=== PATIENT | female | born 1935 | race Caucasian/White ===

== ENCOUNTER 2017-03-24 18:17 | Emergency (ER) | payer MEDICARE, MEDICAID ==
--- NOTE | 2017-03-24 19:04 | ED Physician Chart ---
ED Chief Complaint/HPI - Patient Information Date Seen:: 03/24/17 Time Seen:: 18:22 Chief Complaint:: Transient confusion. History of Present Illness:: Brought in by ambulance from assisted living facility for the above reason. Pt states that she now feels better. Pt currently denies any lightheadedness, chest pain, palpitation or dyspnea. Pt feels well now without subjective complaint. Allergies:: Allergies Allergy/AdvReac Type Severity Reaction Status Date / Time MDX No Known Allergies - Nka Allergy Verified 05/07/14 13:03 [No Known Allergies - Nka] Vitals:: see Nurse Note. Historian:: Patient, Medical Records (from assisted living facility, very limited.) Family MD/PCP:: Dr. Rojas Sharma. LMP:: Postmenopausal Review:: Nurse's Note Reviewed, Transfer documents Reviewed ED Review of Systems - Review of Systems General/Constitutional: No fever, No chills, No weight loss, No weakness, No diaphoresis, No edema, No loss of appetite Skin: No rash, No bruising Head: No headache, Light headed (?transient) Eyes: No loss of vision, No pain, No diplopia ENT: No earache, No nasal drainage, No sore throat, No tinnitus Neck: No neck pain, No swelling, No thyromegaly, No stiffness, No mass noted Cardio Vascular: No chest pain, No palpitations, No PND, No orthopnea, No edema Pulmonary: No SOB, No cough, No wheezing GI: No nausea, No vomiting, No diarrhea, No pain G/U: No dysuria, No frequency, No hematuria [employer] Administrator: No vaginal discharge, No abnormal vaginal bleed Musculoskeletal: No bone or joint pain Endocrine: No polyuria, No polydipsia Psychiatric: Prior psych history, No depression Hematopoietic: No bruising, No lymphadenopathy Allergic/Immuno: No urticaria, No angioedema Neurological: No syncope, No focal symptoms, No weakness, No paresthesia, No headache, Confusion (transient), No vertigo ED Past Medical History - Past Medical History Past Medical History: CAD, Dementia, Other (Parkinson's disease. Osteoporosis.) Family History: Cancer (an uncle) Social History: Non Smoker, No Alcohol, No Drug Use, Single, Care Facility Employment:: retired. Surgical History: None Psychiatricy History: Depression, Dementia Medication: Reviewed Family Medical History - Family Member Mother History Unknown: Yes Ethnicity: Non- Living Status: Unknown Hx Family Cancer: (unknown) Hx Family Coronary Artery Disease: (unknown) Hx Family Congestive Heart Failure: (unknown) Hx Family Hypertension: (unknown) Hx Family Stroke: (unknown) Hx Family Diabetes: (unknown) Hx Family Seizures: (unknown) Hx Family Dementia: (unknown) Hx Family AIDS: (unknown) Hx Family COPD: (unknown) Hx Family Hepatitis: (unknown) Hx Family Psychiatric Problems: (unknown) Hx Family Tuberculosis: (unknown) ED Physical Exam - Physical Examination General/Constitutional: Awake, Well-developed, well-nourished, Alert, No distress, Non-toxic appearing Other Gen/Cons comments:: Breathes comfortably, speaks clearly, interacts normally except pt appears to be forgetful from time to time. Head: Atraumatic Eyes: Lids, conjuctiva normal, PERRL, EOMI Skin: Nl inspection, No rash, No ecchymosis, Well hydrated, No lymphadenopathy ENMT: External ears, nose nl, TM canals nl, Nasal exam nl, Oropharynx nl Neck: Nontender, Full ROM w/o pain, No JVD, No nuchal rigidity, No mass, No stridor Respiratory: Nl effort/Exclusion, Clear to Auscultation, No Wheeze/Rhonchi/Rales Cardio Vascular: RRR, No murmur, gallop, rubs GI: No tenderness/rebounding/guarding, No organomegaly, No mass/bruits Other GI comments:: Obese but soft. : No CVA tenderness Extremities: No tenderness or effusion, No edema Neuro/Psych: Alert/oriented (knows her name, that she is in ER in the evening.) , Mood normal, No focal deficits ED Labs/Radiology/EKG Results - Lab Results Results: Laboratory Tests 03/24/17 03/24/17 03/24/17 19:00 19:15 19:15 WBC 7.0 RBC 3.89 Hgb 12.2 Hct 35.7 L D MCV 91.8 MCH 31.4 H MCHC Differential 34.2 RDW 14.7 Plt Count 353 D MPV 7.7 Neutrophils % 60.0 Lymphocytes % 30.0 Monocytes % 7.8 Eosinophils % 1.9 Basophils % 0.3 PT 10.3 INR 0.99 PTT (Actin FS) 23.4 L Creatine Kinase Troponin I Urine Source CATH Urine Color PALE YELLOW Urine Clarity CLEAR Urine pH 7.0 Ur Specific Denbo <= 1.005 Urine Protein NEGATIVE Urine Glucose (UA) NEGATIVE Urine Ketones NEGATIVE Urine Blood NEGATIVE Urine Nitrate NEGATIVE Urine Bilirubin NEGATIVE Urine Urobilinogen 0.2 Ur Leukocyte Esterase NEGATIVE Urine RBC NONE SEEN Urine WBC NONE SEEN Ur Epithelial Cells NONE SEEN Urine Bacteria NONE SEEN Valproic Acid 03/24/17 03/24/17 03/24/17 19:15 19:15 19:15 WBC RBC Hgb Hct MCV MCH MCHC Differential RDW Plt Count MPV Neutrophils % Lymphocytes % Monocytes % Eosinophils % Basophils % PT INR PTT (Actin FS) Creatine Kinase 72 Troponin I 0.01 Urine Source Urine Color Urine Clarity Urine pH Ur Specific Denbo Urine Protein Urine Glucose (UA) Urine Ketones Urine Blood Urine Nitrate Urine Bilirubin Urine Urobilinogen Ur Leukocyte Esterase Urine RBC Urine WBC Ur Epithelial Cells Urine Bacteria Valproic Acid 33.7 L Laboratory Last Values WBC 7.0 Th/cmm (4.8-10.8) 03/24/17 19:15 RBC 3.89 Mil/cmm (3.80-5.20) 03/24/17 19:15 Hgb 12.2 gm/dL (12-16) 03/24/17 19:15 Hct 35.7 % (41.0-60) L D 03/24/17 19:15 MCV 91.8 fl (81-100) 03/24/17 19:15 MCH 31.4 pg (27.0-31.0) H 03/24/17 19:15 MCHC Differential 34.2 pg (28.0-36.0) 03/24/17 19:15 RDW 14.7 % (11.5-20.0) 03/24/17 19:15 Plt Count 353 Th/cmm (150-400) D 03/24/17 19:15 MPV 7.7 fl 03/24/17 19:15 Neutrophils % 60.0 % (40.0-80.0) 03/24/17 19:15 Lymphocytes % 30.0 % (20.0-50.0) 03/24/17 19:15 Monocytes % 7.8 % (2.0-10.0) 03/24/17 19:15 Eosinophils % 1.9 % (0.0-5.0) 03/24/17 19:15 Basophils % 0.3 % (0.0-2.0) 03/24/17 19:15 PT 10.3 SECONDS (9.5-11.5) 03/24/17 19:15 INR 0.99 (0.5-1.4) 03/24/17 19:15 PTT (Actin FS) 23.4 SECONDS (26.0-38.0) L 03/24/17 19:15 Sodium 131 mEq/L (136-145) L 03/24/17 19:15 Potassium 3.8 mEq/L (3.5-5.1) 03/24/17 19:15 Chloride 96 mEq/L (98-107) L 03/24/17 19:15 Carbon Dioxide 26.1 mEq/L (21.0-31.0) 03/24/17 19:15 Anion Gap 12.7 (7.0-16.0) 03/24/17 19:15 BUN 22 mg/dL (7-25) 03/24/17 19:15 Creatinine 0.6 mg/dL (0.6-1.2) 03/24/17 19:15 Est GFR ( Amer) TNP 03/24/17 19:15 Est GFR (Non-Af Amer) TNP 03/24/17 19:15 BUN/Creatinine Ratio 36.7 03/24/17 19:15 Glucose 104 mg/dL (70-105) 03/24/17 19:15 Calcium 9.0 mg/dL (8.6-10.3) 03/24/17 19:15 Total Bilirubin 0.4 mg/dL (0.3-1.0) 03/24/17 19:15 AST 17 U/L (13-39) 03/24/17 19:15 ALT 3 U/L (7-52) L 03/24/17 19:15 Alkaline Phosphatase 51 U/L (34-104) 03/24/17 19:15 Creatine Kinase 72 U/L (30-223) 03/24/17 19:15 Troponin I 0.01 ng/mL (0.01-0.05) 03/24/17 19:15 Total Protein 6.6 gm/dL (6.0-8.3) 03/24/17 19:15 Albumin 3.7 gm/dL (3.7-5.3) 03/24/17 19:15 Globulin 2.9 gm/dL 03/24/17 19:15 Albumin/Globulin Ratio 1.3 (1.0-1.8) 03/24/17 19:15 Urine Source CATH 03/24/17 19:00 Urine Color PALE YELLOW 03/24/17 19:00 Urine Clarity CLEAR (CLEAR) 03/24/17 19:00 Urine pH 7.0 (4.6 - 8.0) 03/24/17 19:00 Ur Specific Denbo <= 1.005 (1.005-1.030) 03/24/17 19:00 Urine Protein NEGATIVE mg/dL (NEGATIVE) 03/24/17 19:00 Urine Glucose (UA) NEGATIVE mg/dL (NEGATIVE) 03/24/17 19:00 Urine Ketones NEGATIVE mg/dL (NEGATIVE) 03/24/17 19:00 Urine Blood NEGATIVE (NEGATIVE) 03/24/17 19:00 Urine Nitrate NEGATIVE (NEGATIVE) 03/24/17 19:00 Urine Bilirubin NEGATIVE (NEGATIVE) 03/24/17 19:00 Urine Urobilinogen 0.2 E.U./dL (0.2 - 1.0) 03/24/17 19:00 Ur Leukocyte Esterase NEGATIVE (NEGATIVE) 03/24/17 19:00 Urine RBC NONE SEEN /hpf (0-5) 03/24/17 19:00 Urine WBC NONE SEEN /hpf (0-5) 03/24/17 19:00 Ur Epithelial Cells NONE SEEN /lpf (FEW) 03/24/17 19:00 Urine Bacteria NONE SEEN /hpf (NONE SEEN) 03/24/17 19:00 Valproic Acid 33.7 ug/mL (50.0-100.0) L 03/24/17 19:15 - Radiology Results Results: Head CT without contrast: No ICH, mass effect, or edema. Involutional and chronic small vessl ischemic changes. No skull fracture. sphenoid sinusitis. Clear mastoid air cells. Official report per Dr. Eddi Dennison, radiologist. - EKG Interpretations EKG Time:: 19:47 Rate & Rhythm: NSR with VR 68 Comments:: LAE. LBBB NSSTT changes. ED Septic Shock - . Is Septic Shock (SBP<90, OR Lactate>4 mmol\L) present?: No ED Reassessment (Disposition) - Reassessment Reassessment:: 2224 Pt has been repeatedly evaluated. Pt remains stable and appears to be comfortable. No new complaint or findings. Remaining lab results just became available. Lab, EKG, and head CT findings have been reviewed with pt. Pt's attending physician Dr. Sharma is to be contacted. [id number] Case was discussed with Dr. Sharma with pertinent H & P, EKG, lab, and CT findings reviewed. Dr. Sharma requested that pt is to be sent back to [facility]. He will adjust pt's medications. He will see pt tomorrow for follow up. Pt remains comfortable and stable. She is A and O x 3. Pt breathes comfortably and speaks clearly. Pt states that she is back to her baseline functional status. Pt agrees with Dr. Sharma's decision and requests to return to assisted living facility now. Aftercare instructions have been given. Reassessment Condition:: Improved - Diagnosis Diagnosis:: Transient confusion by hx. Consider medication effect. Resolved and currently asymptomatic. Acute sinusitis by head CT. Stable. - Aftercare/Follow up Instructions Aftercare/Follow-Up Instructions:: Refer to Discharge Instructions Notes:: Bedrest for now. May take Tylenol 500 mg tab one tab po q6h prn pain. F/U with PCP Dr. Rojas Sharma as planned for 03/25/17. Return to ER immediately if condition worsens or if any further questions/problems. Medication Prescribed:: Bactrim DS one tab po q12h D-28 R-0 - Patient Disposition Discharge/Transfer:: Residential/Boarding Care Transport Method:: BLS Time:: 23:20 Condition at Disposition:: Stable, Improved ED Discharge Plan - Patient Disposition Admit/Discharge/Transfer: Discharge/Transfered to SNF Condition at Disposition: Stable Prescriptions: Sulfamethoxazole/TMP [Bactrim Ds] 1 tab PO Q12HR #12 tab Instructions: Sinusitis, [id number]
[2017-03-24 19:22] LABS: % BASOPHILS 0.3 % (0.0-2.0); % EOSINOPHILS 1.9 % (0.0-5.0); % MONOCYTES 7.8 % (2.0-10.0); HEMOGLOBIN 12.2 gm/dL (12-16); MEAN CELL VOLUME 91.8 fl (81-100); MEAN CORPUSCULAR HEMOGLOBIN 31.4 pg (27.0-31.0); MEAN CORPUSCULAR HGB CONC 34.2 pg (28.0-36.0); MEAN PLATELET VOLUME 7.7 fl; NEUTROPHILE ABSOLUTE 4.3 Th/cmm (1.8-8.0); RED BLOOD COUNT 3.89 Mil/cmm (3.80-5.20); RED CELL DISTRIBUTION WIDTH 14.7 % (11.5-20.0)
[2017-03-24 19:23] LABS: HEMATOCRIT 35.7 % (41.0-60); PLATELET COUNT 353 Th/cmm (150-400)
[2017-03-24 19:36] LABS: INR 0.99 (0.5-1.4); PROTHROMBIN TIME (TEST) 10.3 SECONDS (9.5-11.5)
[2017-03-24 19:48] LABS: URINE BILIRUBIN NEGATIVE (NEGATIVE); URINE BLOOD NEGATIVE (NEGATIVE); URINE GLUCOSE (UA) NEGATIVE (NEGATIVE); URINE KETONE NEGATIVE (NEGATIVE); URINE PROTEIN NEGATIVE (NEGATIVE); URINE UROBILINOGEN 0.2 E.U./dL (0.2 - 1.0)
[2017-03-24 19:50] LABS: URINE COLOR PALE YELLOW
[2017-03-24 19:51] LABS: URINE BACTERIA NONE SEEN /hpf (NONE SEEN); URINE EPITHELIAL CELLS NONE SEEN /lpf (FEW); URINE RBC NONE SEEN /hpf (0-5); URINE WBC NONE SEEN /hpf (0-5)
[2017-03-24 21:51] LABS: ALB/GLOB RATIO 1.3 (1.0-1.8); ALKALINE PHOSPHATASE 51 U/L (34-104); ANION GAP 12.7 (7.0-16.0); BILIRUBIN,TOTAL 0.4 mg/dL (0.3-1.0); BUN - UREA NITROGEN 22 mg/dL (7-25); BUN/CREATININE RATIO 36.7; CARBON DIOXIDE 26.1 mEq/L (21.0-31.0); CHLORIDE 96 mEq/L (98-107); CREATININE - SERUM 0.6 mg/dL (0.6-1.2); GLUCOSE 104 mg/dL (70-105); POTASSIUM SERUM 3.8 mEq/L (3.5-5.1); SGOT 17 U/L (13-39); SGPT/ALT 3 U/L (7-52); SODIUM SERUM 131 mEq/L (136-145)
[2017-03-24] MEDS ORDERED: Sulfamethoxazole/TMP 800/160mg Tab ONE (22:49)
[2017-03-24] MEDS: Sulfamethoxazole/TMP 800/160mg Tab PO ONE (22:52)
--- NOTE | 2017-03-25 07:34 | Diagnostic Imaging Report ---
CT scan of the brain without intravenous contrast HISTORY: Confusion Total DLP equals 620 CTDI equals 32.2 Axial sections were obtained from the base of the skull to the vertex. There is prominence/enlargement of the ventricular system size. Associated enlargement of cerebral sulci and subarachnoid cisterns. Findings are consistent with changes of generalized cerebral atrophy. No acute parenchymal abnormalities. No acute cerebral hemorrhage. Hypodensity is seen within the supratentorial white matter regions without mass effect. The findings may be associated with chronic small vessel ischemic disease. No extra-axial masses or abnormal fluid collections. The vertebral arteries are calcified. IMPRESSION: 1. No acute abnormalities 2. Cerebral atrophy 3. Supratentorial white matter changes that may reflect chronic small vessel ischemic disease
== END 2017-03-24 23:23 ==
LOC: ER 18:17
DX: R41.0 Disorientation, unspecified (principal); J01.90 Acute sinusitis, unspecified; I25.10 Atherosclerotic heart disease of native coronary artery without angina pectoris; F03.90 Unspecified dementia, unspecified severity, without behavioral disturbance, psychotic disturbance, mood disturbance, and anxiety; Z86.69 Personal history of other diseases of the nervous system and sense organs
CPT/HCPCS: 36415-UA; 70450-TC; 80053-TC; 80164-TC; 81001-TC; 82550-TC; 84484-TC; 85025-TC; 85610-TC; 93005

== ENCOUNTER 2017-11-13 13:09 | Inpatient (IN) | payer MEDICARE, MEDICAID ==
[2017-11-13 13:48] LABS: % BASOPHILS 0.1 % (0.0-2.0); % EOSINOPHILS 0.8 % (0.0-5.0); % LYMPHOCYTES 18.9 % (20.0-50.0); % MONOCYTES 9.1 % (2.0-10.0); % NEUTROPHILS 71.1 % (40.0-80.0); EOSINOPHILE ABSOLUTE 0.1 Th/cmm (0.1-0.4); HEMATOCRIT 40.7 % (41.0-60); HEMOGLOBIN 13.7 gm/dL (12-16); LYMPHOCYTE ABSOLUTE 2.1 Th/cmm (1.5-3.0); MEAN CORPUSCULAR HGB CONC 33.8 pg (28.0-36.0); MEAN PLATELET VOLUME 8.1 fl; NEUTROPHILE ABSOLUTE 7.7 Th/cmm (1.8-8.0); PLATELET COUNT 413 Th/cmm (150-400); RED BLOOD COUNT 4.43 Mil/cmm (3.80-5.20); RED CELL DISTRIBUTION WIDTH 13.6 % (11.5-20.0); WHITE BLOOD COUNT 10.9 Th/cmm (4.8-10.8)
[2017-11-13 14:05] LABS: INR 1.14 (0.5-1.4)
[2017-11-13 14:10] LABS: ALB/GLOB RATIO 1.2 (1.0-1.8); ALBUMIN 3.5 gm/dL (3.7-5.3); ALKALINE PHOSPHATASE 59 U/L (34-104); ANION GAP 14.3 (7.0-16.0); BILIRUBIN,TOTAL 0.5 mg/dL (0.3-1.0); BUN - UREA NITROGEN 24 mg/dL (7-25); CALCIUM SERUM 9.3 mg/dL (8.6-10.3); CHLORIDE 99 mEq/L (98-107); CREATININE - SERUM 0.6 mg/dL (0.6-1.2); CREATININE KINASE 900 U/L (30-223); GLUCOSE 110 mg/dL (70-105); POTASSIUM SERUM 3.3 mEq/L (3.5-5.1); SGOT 44 U/L (13-39); SGPT/ALT 25 U/L (7-52); SODIUM SERUM 136 mEq/L (136-145); TOTAL PROTEIN,SERUM 6.4 gm/dL (6.0-8.3)
[2017-11-13 14:12] LABS: TROP I 0.02 ng/mL (0.01-0.05)
--- NOTE | 2017-11-13 14:51 | Diagnostic Imaging Report ---
CHEST X-RAY: AP view INDICATION: pain COMPARISON: None FINDINGS: The patient is mildly rotated. There is soft tissue prominence of right paratracheal region. Chronic lung changes are seen with elevation of the right hemidiaphragm and right basal increased lung markings. No focal consolidation or effusions. Heart size is normal. Degenerative changes of the spine are noted. Postsurgical changes of the right upper quadrant are noted. IMPRESSION: Prominence of the right paratracheal soft tissues probably due to patient rotation and vasculature in this region. Lymphadenopathy is less likely. Consider follow-up assessment, if indicated. Increased right basal lung markings which may be due to atelectasis or scarring. No focal consolidation identified Chronic lung changes.
--- NOTE | 2017-11-13 14:53 | Diagnostic Imaging Report ---
Pelvis and hips 2 views Indication: Fall Comparison: none Findings: Mild degenerative changes of the bilateral hip joints are noted. Calcific density seen along the medial aspect of the right femoral neck. No dislocation. Degenerative changes of pubic symphysis joint is noted. Calcifications are seen within the pelvis possibly due to fibroids. The SI joints demonstrate degenerative changes. Degenerative changes of the lower lumbar spine is also noted. Atherosclerosis is noted. Impression: Calcific density adjacent to the right medial femoral neck. This may be due to degenerative etiology or may be due to projection. A nondisplaced fracture is considered less likely. CT pelvis would provide additional detail and assessment. Calcifications in the pelvis probably related to fibroid calcifications Degenerative changes. In the setting of trauma, if clinical symptoms persist and there is continued concern for an occult fracture, follow up exams in 5-7 days is suggested.
[2017-11-13] MEDS ORDERED: Potassium Chloride 20 mEq ER Tab PO ONE ×2 (15:34→15:57)
--- NOTE | 2017-11-13 15:34 | ED Physician Chart ---
ED Chief Complaint/HPI - Patient Information Date Seen:: 11/13/17 Time Seen:: 13:25 Chief Complaint:: Diarrhea History of Present Illness:: onset x 3 days of N/V/D x 12, failure to thrive, and poor oral intake; ? Hx of falls and trauma with intermittent hip and leg pain; no report of H/As,neck pain , C/P, SOB, Abd. Pain, A/C, fever, chills, or urinary s/s; pt's last tetanus shot: < 5 years; UTD Allergies:: Allergies Allergy/AdvReac Type Severity Reaction Status Date / Time No Known Allergies Allergy Verified 03/24/17 19:05 Vitals:: Vital Signs - 8 hr 11/13/17 13:25 Temp 99.7 F HR 98 RR 16 BP 112/66 O2 Sat % 98 Historian:: Patient, EMS Review:: Nurse's Note Reviewed, Old Chart Reviewed, EMS run form Reviewed ED Review of Systems - Review of Systems General/Constitutional: No fever, No chills, No weight loss, No weakness, No diaphoresis, No edema, No loss of appetite Skin: No skin lesions, No rash, No bruising Head: No headache, No light-headedness Eyes: No loss of vision, No pain, No diplopia ENT: No earache, No nasal drainage, No sore throat, No tinnitus Neck: No neck pain, No swelling, No thyromegaly, No stiffness, No mass noted Cardio Vascular: No chest pain, No palpitations, No PND, No orthopnea, No edema Pulmonary: No SOB, No cough, No sputum, No wheezing GI: Nausea, Vomiting, Diarrhea, No pain, No melena, No hematochezia, No constipation, No hematemesis G/U: No dysuria, No frequency, No hematuria, No nacturia Superintendent: No vaginal discharge, No abnormal vaginal bleed, No contraction Musculoskeletal: No bone or joint pain, No back pain, No muscle pain Endocrine: No polyuria, No polydipsia Psychiatric: No prior psych history, No depression, No anxiety, No suicidal ideation, No homicidal ideation, Auditory hallucination, No visual hallucination Hematopoietic: No bruising, No lymphadenopathy Allergic/Immuno: No urticaria, No angioedema Neurological: No syncope, No focal symptoms, No weakness, No paresthesia, No headache, No seizure, No dizziness, Confusion, No vertigo ED Past Medical History - Past Medical History Obtainable: Yes Past Medical History: HTN, CAD, Dyslipidemia, Dementia, Other (Parkinson's Disease) Family History: HTN Social History: Non Smoker, No Alcohol, No Drug Use, , Care Facility Surgical History: None Psychiatricy History: Dementia Medication: Reviewed Family Medical History - Family Member Mother History Unknown: Yes Ethnicity: Non- Living Status: Unknown Hx Family Cancer: (unknown) Hx Family Coronary Artery Disease: (unknown) Hx Family Congestive Heart Failure: (unknown) Hx Family Hypertension: (unknown) Hx Family Stroke: (unknown) Hx Family Diabetes: (unknown) Hx Family Seizures: (unknown) Hx Family Dementia: (unknown) Hx Family AIDS: (unknown) Hx Family COPD: (unknown) Hx Family Hepatitis: (unknown) Hx Family Psychiatric Problems: (unknown) Hx Family Tuberculosis: (unknown) ED Physical Exam - Physical Examination General/Constitutional: Awake, Well-developed, well-nourished, Alert, No distress, GCS 15, Non-toxic appearing, Ambulatory Head: Atraumatic Eyes: Lids, conjuctiva normal, PERRL, EOMI Skin: Nl inspection, No rash, No skin lesions, No ecchymosis, No lymphadenopathy Other Skin comments:: Poor turgor with dry MM ENMT: External ears, nose nl, TM canals nl, Nasal exam nl, Lips, teeth, gums nl , Oropharynx nl, Tonsils nl Neck: Nontender, Full ROM w/o pain, No JVD, No nuchal rigidity, No bruit, No mass, No stridor Respiratory: Nl effort/Exclusion, Clear to Auscultation, No Wheeze/Rhonchi/Rales Cardio Vascular: No murmur, gallop, rubs, NL S1 S2, Carotid/Femoral/Distal pulses equal bilaterally Other Cardio Vascular comments:: Irregular Irregular Rhythm GI: No tenderness/rebounding/guarding, No organomegaly, No hernia, Normal BS's, Nondistended, No mass/bruits, No McBurney tenderness, Rectum exam nl : No CVA tenderness Extremities: No tenderness or effusion, Full ROM, normal strength in all extremities, No edema, Normal digits & nails Neuro/Psych: Alert/oriented, DTR's symmetric, Normal sensory exam, Normal motor strength, Judgement/insight normal, Mood normal, Normal gait, No focal deficits Misc: Normal back, No paraspinal tenderness ED Labs/Radiology/EKG Results - Lab Results Results: Laboratory Tests 11/13/17 11/13/17 11/13/17 13:45 13:45 13:45 WBC 10.9 H RBC 4.43 Hgb 13.7 Hct 40.7 L MCV 92.0 MCH 31.0 MCHC Differential 33.8 RDW 13.6 Plt Count 413 H MPV 8.1 Neutrophils % 71.1 Lymphocytes % 18.9 L Monocytes % 9.1 Eosinophils % 0.8 Basophils % 0.1 PT 12.0 H INR 1.14 PTT (Actin FS) 25.6 L Sodium 136 Potassium 3.3 L Chloride 99 Carbon Dioxide 26.0 Anion Gap 14.3 BUN 24 Creatinine 0.6 Est GFR ( Amer) TNP Est GFR (Non-Af Amer) TNP BUN/Creatinine Ratio 40.0 Glucose 110 H Whole Bld Lactic Acid Calcium 9.3 Total Bilirubin 0.5 AST 44 H ALT 25 Alkaline Phosphatase 59 Creatine Kinase 900 H CK-MB (CK-2) 12.9 H Troponin I Total Protein 6.4 Albumin 3.5 L Globulin 2.9 Albumin/Globulin Ratio 1.2 11/13/17 13:45 WBC RBC Hgb Hct MCV MCH MCHC Differential RDW Plt Count MPV Neutrophils % Lymphocytes % Monocytes % Eosinophils % Basophils % PT INR PTT (Actin FS) Sodium Potassium Chloride Carbon Dioxide Anion Gap BUN Creatinine Est GFR ( Amer) Est GFR (Non-Af Amer) BUN/Creatinine Ratio Glucose Whole Bld Lactic Acid 1.11 Calcium Total Bilirubin AST ALT Alkaline Phosphatase Creatine Kinase CK-MB (CK-2) Troponin I 0.02 Total Protein Albumin Globulin Albumin/Globulin Ratio Comments:: K+: 3.3; WBC: 10.9 - Radiology Results Comments:: DJD Changes; NAD - EKG Interpretations EKG Time:: 13:31 Rate & Rhythm: 95; Atrial Fibrillation Comments:: LBBB; non-specific st-t changes ED Septic Shock - . Is Septic Shock (SBP<90, OR Lactate>4 mmol\L) present?: No - <6hrs of presentation: Vital Signs: Vital Signs - 8 hr 11/13/17 13:25 Temp 99.7 F HR 98 RR 16 BP 112/66 O2 Sat % 98 ED Reassessment (Disposition) - Reassessment Reassessment Condition:: Improved - Diagnosis Diagnosis:: Dx: Hypokalemia; Diarrhea; Leg Pain; Falls; Parkinson's Disease; Dementia; Atrial Fibrillation; Dehydration - Aftercare/Follow up Instructions Aftercare/Follow-Up Instructions:: Counseled pt regarding lab results/diagnosis & need follow up, Counseled pt & family regarding lab results/diagnosis & need follow up - Patient Disposition Discharge/Transfer:: Acute Care w/in this hosp Accepting Physician:: Dr. Mcconnell Time Called:: 1500 Time Responded:: 15:00 Admitted to:: Telemetry Spoke to:: Dr. Mcconnell Admitting Medical Physician:: Dr. Mcconnell Condition at Disposition:: Stable, Improved
[2017-11-13] MEDS ORDERED: Sodium Chloride 0.9% 1,000 ML IV ONE (15:46)
[2017-11-13 16:04] LABS: AMYLASE SERUM 36 U/L (29-103); LIPASE 59 U/L (11-82)
[2017-11-13 18:14] VITALS: BP 135/61
[2017-11-13] MEDS ORDERED: MORPHINE SULFATE PO PRN (18:39)
[2017-11-13] MEDS ORDERED: LORAZEPAM SL PRN (18:39)
[2017-11-13] MEDS ORDERED: Magnesium Hydroxide (MOM) 30 mL UDC PO PRN (18:39)
[2017-11-13] MEDS ORDERED: Albuterol/Ipratropium Neb 3 ML AERS HHN PRN (18:39)
[2017-11-13] MEDS ORDERED: D5-0.45NS 1,000 ML IV SCH (18:45)
[2017-11-13] MEDS: D5-0.45NS 1,000 ML IV SCH (20:08)
[2017-11-13] MEDS ORDERED: Guaifenesin DM 10 ML UDC PO PRN (20:25)
[2017-11-13] MEDS: metroNIDAZOLE 500mg/NS 100mL 500 MG/100 ML BAG IV SCH (20:45)
[2017-11-13] MEDS ORDERED: Levofloxacin 500mg/100mL 500 MG/100 ML BAG IV ONE (21:00)
[2017-11-13] MEDS: Dicyclomine 10 mg Cap PO SCH (23:04)
--- NOTE | 2017-11-13 23:54 | Consultation ---
Consult Note - Consult Note Service Date: 11/13/17 Referring Physician: Kadi Mcconnell Consult Note: PHYSICIAN Consultation Note: Date of Admission: 11/13/17 Purpose of Consultation: Diarrhea. Chief Complaint: Patient JOSÉ HILL was admitted to location Medical/ Surgical Unit I with DIARRHEA. History of Present Illness: 82 afebrile with a past medical history of dementia , Hypertension, carotid disease, dyslipidemia, Parkinson's disease, dementia and other nausea vomiting and diarrhea. So she was brought to the ER for further evaluation and management. On initial evaluation patient was afebrile and her WBC count was 10,000. Patient was started Levaquin and Flagyl and ID consult was called for antibiotic management. Currently, she has no nausea, vomiting or diarrhea. Past Medical History: Hypertension, carotid disease, dyslipidemia, Parkinson's disease, dementia Allergies Allergy/AdvReac Type Severity Reaction Status Date / Time No Known Allergies Allergy Verified 03/24/17 19:05 Vital Signs Temp 97.7 F 11/13/17 18:11 Pulse 74 11/13/17 21:46 Resp 18 11/13/17 21:46 BP 135/61 11/13/17 18:14 Pulse Ox 94 11/13/17 21:46 Intake & Output 11/13/17 11/13/17 11/14/17 06:59 18:59 06:59 Weight (lbs) 80.286 kg Other: [facility] Source [facility] Laboratory Results - last 24 hr 11/13/17 11/13/17 11/13/17 13:45 13:45 13:45 WBC 10.9 H RBC 4.43 Hgb 13.7 Hct 40.7 L MCV 92.0 MCH 31.0 MCHC Differential 33.8 RDW 13.6 Plt Count 413 H MPV 8.1 Neutrophils % 71.1 Lymphocytes % 18.9 L Monocytes % 9.1 Eosinophils % 0.8 Basophils % 0.1 PT 12.0 H INR 1.14 PTT (Actin FS) 25.6 L Sodium 136 Potassium 3.3 L Chloride 99 Carbon Dioxide 26.0 Anion Gap 14.3 BUN 24 Creatinine 0.6 Est GFR ( Amer) TNP Est GFR (Non-Af Amer) TNP BUN/Creatinine Ratio 40.0 Glucose 110 H Whole Bld Lactic Acid Calcium 9.3 Total Bilirubin 0.5 AST 44 H ALT 25 Alkaline Phosphatase 59 Creatine Kinase 900 H CK-MB (CK-2) 12.9 H Troponin I Total Protein 6.4 Albumin 3.5 L Globulin 2.9 Albumin/Globulin Ratio 1.2 Amylase Lipase 11/13/17 11/13/17 13:45 13:45 WBC RBC Hgb Hct MCV MCH MCHC Differential RDW Plt Count MPV Neutrophils % Lymphocytes % Monocytes % Eosinophils % Basophils % PT INR PTT (Actin FS) Sodium Potassium Chloride Carbon Dioxide Anion Gap BUN Creatinine Est GFR ( Amer) Est GFR (Non-Af Amer) BUN/Creatinine Ratio Glucose Whole Bld Lactic Acid 1.11 Calcium Total Bilirubin AST ALT Alkaline Phosphatase Creatine Kinase CK-MB (CK-2) Troponin I 0.02 Total Protein Albumin Globulin Albumin/Globulin Ratio Amylase 36 Lipase 59 Home Medication Medication Instructions Recorded Type Acetaminophen Supp 1 supp RC Q4H PRN 11/13/17 History Alendronate Sodium 70 mg PO Q7D 11/13/17 History Aspirin [Yancey Aspirin] 81 mg PO DAILY 11/13/17 History Atropine Sulfate 1 - 3 drop SL Q3H PRN 11/13/17 History Bisacodyl [Biscolax] 10 mg RC DAILY PRN 11/13/17 History Carbidopa/Levodopa 1 tab PO TID 11/13/17 History [Carbidopa-Levodopa 25-100 Tab] Dicyclomine HCl 20 mg PO TID 11/13/17 History Divalproex Sodium [Depakote] 250 mg PO BID 11/13/17 History Docusate Sodium [Stool Softener] 250 mg PO BID 11/13/17 History Gabapentin [Neurontin] 100 mg PO BID 11/13/17 History Gabapentin [Neurontin] 300 mg PO HS 11/13/17 History Guaifenesin/Dextromethorphan 10 ml PO Q4H PRN 11/13/17 History [Robafen Dm Cgh-Chest Aravind Syrp] HYDROmorphone [Dilaudid*] 2 mg PO Q2H PRN 11/13/17 History Ipratropium/Albuterol Sulfate 1 vial HHN Q4H PRN 11/13/17 History [Iprat-Albut 0.5-3(2.5) mg/3 ml] Lorazepam [Lorazepam Intensol] 0.25 ml SL Q4H PRN 11/13/17 History Lubiprostone [Amitiza] 24 mcg PO BID 11/13/17 History Magnesium Hydroxide [Milk of 30 ml PO HS PRN 11/13/17 History Magnesia] Mirtazapine [Remeron] 15 mg PO HS 11/13/17 History Morphine Sulfate 0.25 ml PO Q4H PRN 11/13/17 History Morphine Sulfate [Morphine Sulfate 30 mg PO Q8H 11/13/17 History ER] Omeprazole 20 mg PO DAILY 11/13/17 History Ondansetron [Zofran ODT] 4 mg PO Q6HR PRN 11/13/17 History Polyethylene Glycol 3350 [Miralax] 17 gm PO DAILY 11/13/17 History Prochlorperazine Maleate 10 mg PO Q6H PRN 11/13/17 History [Compazine] Quetiapine Fumarate [Seroquel] 50 mg PO HS 11/13/17 History Sennosides [Senexon] 8.6 mg PO DAILY 11/13/17 History Current Medications Generic Name Dose Route Start Last Admin Trade Name Freq PRN Reason Stop Dose Admin Albuterol/Ipratropium 3 ml 11/13/17 18:39 Duoneb Neb HHN 01/12/18 18:38 Q4HRT PRN Shortness of Breath Alendronate Sodium 70 mg 11/13/17 18:45 Fosamax PO 01/12/18 18:44 Q7D DAVID Aspirin 81 mg 11/14/17 09:00 Aspirin Chewable PO 01/13/18 08:59 DAILY [facility] Atropine Sulfate 3 drop 11/13/17 18:39 Isopto Atropine 1% Ophth Soln SL 01/12/18 18:38 Q3H PRN excessive secretion Bisacodyl 10 mg 11/13/17 18:39 Dulcolax 10 Mg Supp RC 01/12/18 18:38 DAILY PRN Constipation Carbidopa/Levodopa 1 tab 11/13/17 21:00 11/13/17 23:03 Sinemet 25mg-100 Mg PO 01/12/18 20:59 Not Given TID [facility] Dicyclomine HCl 20 mg 11/13/17 21:00 11/13/17 23:04 Bentyl PO 01/12/18 20:59 Not Given TID [facility] Divalproex Sodium 250 mg 11/14/17 09:[address] PO 01/13/18 08:59 BID [facility] Protocol Docusate Sodium 250 mg 11/14/17 09:00 Colace PO 01/13/18 08:59 BID DAVID Gabapentin 100 mg 11/14/17 09:00 Neurontin PO 01/13/18 08:59 BID DAVID Gabapentin 300 mg 11/13/17 21:00 11/13/17 23:04 Neurontin PO 01/12/18 20:59 Not Given HS [facility] Guaifenesin/Dextromethorphan 10 ml 11/13/17 20:25 Robitussin Dm PO 01/12/18 20:24 Q4H PRN Cough Hydromorphone HCl 2 mg 11/13/17 18:39 Dilaudid PO 01/12/18 18:38 Q2H PRN Pain (Severe) Sodium Chloride 1,000 mls @ 100 mls/hr 11/13/17 15:46 11/13/17 16:00 Nacl 0.9% IV 11/14/17 01:45 100 mls/hr .Q10H ONE Administration Metronidazole 500 mg in 100 mls @ 100 mls/hr 11/13/17 21:00 11/13/17 20:45 Flagyl IV 01/12/18 20:59 100 mls/hr Q8HR [facility]ID Administration Dextrose/Sodium Chloride 1,000 mls @ 125 mls/hr 11/13/17 20:00 11/13/17 20:08 D5-0.45ns IV 01/12/18 19:59 125 mls/hr .Q8H DAVID Administration Magnesium Hydroxide 30 ml 11/13/17 18:39 Milk Of Magnesia PO 01/12/18 18:38 HS PRN Constipation Mirtazapine 15 mg 11/13/17 21:00 11/13/17 23:04 Remeron PO 01/12/18 20:59 Not Given HS [facility] Protocol Miscellaneous 1 supp 11/13/17 18:39 Acetaminophen Supp RC Q4H PRN mild carmine / fever Miscellaneous 0.25 ml 11/13/17 18:39 Lorazepam [Lorazepam Intensol] SL Q4H PRN Pain (Moderate) Miscellaneous 24 mcg 11/14/17 09:00 Lubiprostone [Amitiza] PO 01/13/18 08:59 BID [facility] Miscellaneous 0.25 ml 11/13/17 18:39 Morphine Sulfate [Morphine Sulfate] PO Q4H PRN Pain (Severe) Miscellaneous 30 mg 11/13/17 18:45 Morphine Sulfate [Morphine Sulfate Er] PO 01/12/18 18:44 Q8H DAVID Ondansetron HCl 4 mg 11/13/17 18:39 Zofran Odt PO 01/12/18 18:38 Q6H PRN Nausea / Vomiting Pantoprazole Sodium 40 mg 11/14/17 07:30 Protonix PO 01/13/18 07:29 QDAC [facility]ID Pneumococcal Polyvalent Vaccine 0.5 ml 11/15/17 18:38 Pneumovax IM 11/15/17 18:39 .ONCE ONE Polyethylene Glycol 17 gm 11/14/17 09:00 Miralax PO 01/13/18 08:59 DAILY [facility] Prochlorperazine Maleate 10 mg 11/13/17 18:39 Compazine PO 01/12/18 18:38 Q6H PRN Nausea / Vomiting Protocol Quetiapine Fumarate 50 mg 11/13/17 21:00 11/13/17 23:04 Seroquel PO 01/12/18 20:59 Not Given HS [facility]ID Protocol Senna 8.6 mg 11/14/17 09:00 Senna PO 01/13/18 08:59 DAILY [facility] Review of Systems: A 12 point ROS was reviewed with the pertinent positive and negatives noted in the HPI. Social History Smoking Status Never smoker Physical Exam: General: Head: Normocephalic, atraumatic. Oral peripheral moist, pink tongue. HEENT: Head: NC NT. Oral cavity: Moist, pink tongue. Eyes: PERRLA. EOMI. Neck: Supple, no JVD. S1 and S2 within normal with regular rhythm no murmur no gallop Cardio: S1 and S2 within normal metabolism: Respiratory: Vesicular with some wheezing. soft, nontender, nondistended, bowel Abdominal: Soft, tender in epigastric area, nondistended pulses present Genital/Urinary: Extremities: NCCE Neurological: AAOx3. Assessment: Diarrhea., Nausea and vomiting. AGE. Improving. Plan: Continue Levaquin and flagyl. Signed, Soren Lira M.D. [id number]
[2017-11-14] MEDS: metroNIDAZOLE 500mg/NS 100mL 500 MG/100 ML BAG IV SCH ×3 (05:09→20:26)
[2017-11-14] MEDS: D5-0.45NS 1,000 ML IV SCH ×4 (06:33→21:00)
[2017-11-14] MEDS: Pantoprazole 40 mg EC Tab PO SCH (06:55)
[2017-11-14 07:23] LABS: % BASOPHILS 0.3 % (0.0-2.0); % EOSINOPHILS 1.3 % (0.0-5.0); % LYMPHOCYTES 18.1 % (20.0-50.0); % MONOCYTES 9.6 % (2.0-10.0); % NEUTROPHILS 70.7 % (40.0-80.0); EOSINOPHILE ABSOLUTE 0.1 Th/cmm (0.1-0.4); HEMATOCRIT 37.4 % (41.0-60); HEMOGLOBIN 12.9 gm/dL (12-16); LYMPHOCYTE ABSOLUTE 1.6 Th/cmm (1.5-3.0); MEAN CORPUSCULAR HGB CONC 34.4 pg (28.0-36.0); MEAN PLATELET VOLUME 7.8 fl; MONOCYTE ABSOLUTE 0.8 Th/cmm (0.3-1.0); NEUTROPHILE ABSOLUTE 6.2 Th/cmm (1.8-8.0); PLATELET COUNT 351 Th/cmm (150-400); RED BLOOD COUNT 4.02 Mil/cmm (3.80-5.20); RED CELL DISTRIBUTION WIDTH 13.3 % (11.5-20.0)
[2017-11-14 07:30] LABS: WHITE BLOOD COUNT 8.7 Th/cmm (4.8-10.8)
[2017-11-14 07:54] LABS: ANION GAP 9.1 (7.0-16.0); BUN - UREA NITROGEN 15 mg/dL (7-25); CALCIUM SERUM 8.1 mg/dL (8.6-10.3); CARBON DIOXIDE 26.3 mEq/L (21.0-31.0); CHLORIDE 104 mEq/L (98-107); CREATININE - SERUM 0.5 mg/dL (0.6-1.2); GLUCOSE 121 mg/dL (70-105); POTASSIUM SERUM 3.4 mEq/L (3.5-5.1); SODIUM SERUM 136 mEq/L (136-145)
--- NOTE | 2017-11-14 07:54 | Diagnostic Imaging Report ---
Bilateral lower extremity DVT study HISTORY: Pain COMPARISON: None Technique: Longitudinal and transverse sonographic images of the bilateral lower extremity veins were obtained with doppler analysis. FINDINGS: There is normal compressibility, augmentation and phasicity of the bilateral common femoral, superficial femoral, popliteal, and posterior tibial veins. No thrombus is visualized. IMPRESSION: No evidence of thrombus within the bilateral lower extremity veins.
--- NOTE | 2017-11-14 08:02 | Consultation ---
DATE OF CONSULTATION: 11/13/2017 PSYCHIATRIC INITIAL EVALUATION AND MENTAL STATUS EXAM PATIENT'S AGE: 82. SEX: Female. PHYSICIAN: Dr. Schofield. CHIEF COMPLAINT: Confusion and depression. HISTORY OF PRESENT ILLNESS: The patient is an 82-year-old female who was admitted to the hospital because of failure to thrive under the care of Dr. Mcconnell. The patient has been depressed and anxious. Chart reviewed and the patient interviewed and discussed the patient's condition with the staff. The patient seems to be slightly confused. She also seems to be restless and easily agitated. She kept rambling about her stomach and continued to say that she is sick to her stomach. The patient has history of what seems to be bipolar. The patient is taking Depakote and gabapentin. She is also taking Remeron 15 mg at bedtime with no side effects and Seroquel 50 mg at bedtime. PAST PSYCHIATRIC HISTORY: The patient has history of what seems to be depression with psychosis. PAST MEDICAL HISTORY: As per Dr. Mcconnell and as mentioned above. SOCIAL HISTORY: The patient lives in a nursing facility. No known alcohol or drug use. MENTAL STATUS EXAM: The patient appears slightly older than her stated age. Anxious. Flat affect. Depressed mood. Thought processes are mainly goal directed. The patient denies any hallucinations or delusions, but at the same time, she is not able to answer all my questions because of her complaining of abdominal pain and preoccupied with her problem. The patient did not answer questions regarding hallucinations or delusions, but seems to be actively responding. Poor insight and poor judgment. ASSESSMENT: PRIMARY DIAGNOSIS: Major depression, severe, recurrent, with psychotic features. TREATMENT PLAN: We will continue monitoring her condition and her medications closely. We will increase Seroquel to 25 mg in the morning and 50 mg at bedtime. Also, we will monitor her behavior and followup. Thanks to Dr. Mcconnell and will follow up with you. [facility]# [id number]
[2017-11-14] MEDS: Aspirin 81mg Chewable Tab PO SCH (10:02)
[2017-11-14] MEDS: Dicyclomine 10 mg Cap PO SCH ×3 (10:02→20:30)
[2017-11-14] MEDS: POLYETHYLENE GLYCOL 3350 17 GM PACK PO SCH (10:03)
--- NOTE | 2017-11-14 13:01 | Infectious Disease Prog Note ---
Infectious Disease Subjective - Review of Systems Service Date: 11/14/17 Subjective: No diarrhea. No fever. Infectious Disease Objective - Results Result Diagrams: 11/14/17 07:17 11/14/17 07:17 Recent Labs: Laboratory Last Values WBC 8.7 Th/cmm (4.8-10.8) D 11/14/17 07:17 RBC 4.02 Mil/cmm (3.80-5.20) 11/14/17 07:17 Hgb 12.9 gm/dL (12-16) 11/14/17 07:17 Hct 37.4 % (41.0-60) L 11/14/17 07:17 MCV 93.0 fl (81-100) 11/14/17 07:17 MCH 32.0 pg (27.0-31.0) H 11/14/17 07:17 MCHC Differential 34.4 pg (28.0-36.0) 11/14/17 07:17 RDW 13.3 % (11.5-20.0) 11/14/17 07:17 Plt Count 351 Th/cmm (150-400) 11/14/17 07:17 MPV 7.8 fl 11/14/17 07:17 Neutrophils % 70.7 % (40.0-80.0) 11/14/17 07:17 Lymphocytes % 18.1 % (20.0-50.0) L 11/14/17 07:17 Monocytes % 9.6 % (2.0-10.0) 11/14/17 07:17 Eosinophils % 1.3 % (0.0-5.0) 11/14/17 07:17 Basophils % 0.3 % (0.0-2.0) 11/14/17 07:17 PT 12.0 SECONDS (9.5-11.5) H 11/13/17 13:45 INR 1.14 (0.5-1.4) 11/13/17 13:45 PTT (Actin FS) 25.6 SECONDS (26.0-38.0) L 11/13/17 13:45 Sodium 136 mEq/L (136-145) 11/14/17 07:17 Potassium 3.4 mEq/L (3.5-5.1) L 11/14/17 07:17 Chloride 104 mEq/L (98-107) 11/14/17 07:17 Carbon Dioxide 26.3 mEq/L (21.0-31.0) 11/14/17 07:17 Anion Gap 9.1 (7.0-16.0) 11/14/17 07:17 BUN 15 mg/dL (7-25) 11/14/17 07:17 Creatinine 0.5 mg/dL (0.6-1.2) L 11/14/17 07:17 Est GFR ( Amer) TNP 11/14/17 07:17 Est GFR (Non-Af Amer) TNP 11/14/17 07:17 BUN/Creatinine Ratio 30.0 11/14/17 07:17 Glucose 121 mg/dL (70-105) H 11/14/17 07:17 Whole Bld Lactic Acid 1.11 mmol/L (0.60-1.99) 11/13/17 13:45 Calcium 8.1 mg/dL (8.6-10.3) L 11/14/17 07:17 Total Bilirubin 0.5 mg/dL (0.3-1.0) 11/13/17 13:45 AST 44 U/L (13-39) H 11/13/17 13:45 ALT 25 U/L (7-52) 11/13/17 13:45 Alkaline Phosphatase 59 U/L (34-104) 11/13/17 13:45 Creatine Kinase 900 U/L (30-223) H 11/13/17 13:45 CK-MB (CK-2) 12.9 ng/mL (0.6-6.3) H 11/13/17 13:45 Troponin I 0.02 ng/mL (0.01-0.05) 11/13/17 13:45 Total Protein 6.4 gm/dL (6.0-8.3) 11/13/17 13:45 Albumin 3.5 gm/dL (3.7-5.3) L 11/13/17 13:45 Globulin 2.9 gm/dL 11/13/17 13:45 Albumin/Globulin Ratio 1.2 (1.0-1.8) 11/13/17 13:45 Amylase 36 U/L (29-103) 11/13/17 13:45 Lipase 59 U/L (11-82) 11/13/17 13:45 - Physical Exam Vitals and I&O: Vital Signs Temp 97.4 F 11/14/17 12:29 Pulse 75 11/14/17 12:29 Resp 17 11/14/17 12:29 BP 120/72 11/14/17 12:29 Pulse Ox 96 11/14/17 12:29 Intake & Output 11/13/17 11/14/17 11/14/17 18:59 06:59 18:59 Intake Total 1300 720 Balance 1300 720 Weight (lbs) 80.286 kg 80.286 kg Intake: Intake, IV Amount 1300 D5-0.45NS 1,000 ml @ 125 1000 mls/hr IV .Q8H [facility] Rx#: [id number] metroNIDAZOLE 500mg/NS 200 100mL 500 mg In 100 ml @ 100 mls/hr IV Q8HR [facility] Rx #:[id number] Oral 720 Other: Weight Source Bedscale Estimated Active Medications: Current Medications Acetaminophen (Tylenol 650mg Supp) 650 mg RC Q4H PRN PRN Reason: mild pain / fever Stop: 01/13/18 12:59 Albuterol/Ipratropium (Duoneb Neb) 3 ml HHN Q4HRT PRN PRN Reason: Shortness of Breath Stop: 01/12/18 18:38 Alendronate Sodium (Fosamax) 70 mg PO Q7D [facility] Stop: 01/17/18 06:29 Aspirin (Aspirin Chewable) 81 mg PO DAILY [facility] Stop: 01/13/18 08:59 Last Admin: 11/14/17 10:02 Dose: 81 mg Atropine Sulfate (Isopto Atropine 1% Oph Soln) 3 drop SL Q3H PRN PRN Reason: excessive secretion Stop: 01/12/18 18:38 Bisacodyl (Dulcolax 10 Mg Supp) 10 mg RC DAILY PRN PRN Reason: Constipation Stop: 01/12/18 18:38 Carbidopa/Levodopa (Sinemet 25mg-100 Mg) 1 tab PO TID [facility] Stop: 01/12/18 20:59 Last Admin: 11/14/17 10:02 Dose: 1 tab Dicyclomine HCl (Bentyl) 20 mg PO TID [facility] Stop: 01/12/18 20:59 Last Admin: 11/14/17 10:02 Dose: 20 mg Divalproex Sodium (Depakote Dr) 250 mg PO BID [facility]; Protocol Stop: 01/13/18 08:59 Last Admin: 11/14/17 10:02 Dose: 250 mg Docusate Sodium (Colace) 250 mg PO BID [facility] Stop: 01/13/18 08:59 Last Admin: 11/14/17 10:02 Dose: 250 mg Gabapentin (Neurontin) 100 mg PO BID [facility] Stop: 01/13/18 08:59 Last Admin: 11/14/17 10:02 Dose: 100 mg Gabapentin (Neurontin) [address] [facility] Stop: 01/12/18 20:59 Last Admin: 11/13/17 23:04 Dose: Not Given Guaifenesin/Dextromethorphan (Robitussin Dm) 10 ml PO Q4H PRN PRN Reason: Cough Stop: 01/12/18 20:24 Hydromorphone HCl (Dilaudid) 2 mg PO Q2H PRN PRN Reason: Pain (Severe) Stop: 01/12/18 18:38 Last Admin: 11/14/17 06:55 Dose: 2 mg Metronidazole (Flagyl) 500 mg in 100 mls @ 100 mls/hr IV Q8HR [facility] Stop: 01/12/18 20:59 Last Admin: 11/14/17 12:50 Dose: 100 mls/hr Dextrose/Sodium Chloride (D5-0.45ns) 1,000 mls @ 125 mls/hr IV .Q8H [facility] Stop: 01/12/18 19:59 Last Admin: 11/14/17 12:56 Dose: Not Given Magnesium Hydroxide (Milk Of Magnesia) 30 ml PO HS PRN PRN Reason: Constipation Stop: 01/12/18 18:38 Mirtazapine (Remeron) [address] [facility]; Protocol Stop: 01/12/18 20:59 Last Admin: 11/13/17 23:04 Dose: Not Given Miscellaneous (Lorazepam [Lorazepam Intensol]) 0.25 ml SL Q4H PRN PRN Reason: Pain (Moderate) Miscellaneous (Morphine Sulfate [Morphine Sulfate]) 0.25 ml PO Q4H PRN PRN Reason: Pain (Severe) Morphine Sulfate (Ms-Contin) 30 mg PO Q8HR [facility] Stop: 01/13/18 04:59 Last Admin: 11/14/17 12:55 Dose: Not Given Ondansetron HCl (Zofran Odt) 4 mg PO Q6H PRN PRN Reason: Nausea / Vomiting Stop: 01/12/18 18:38 Ondansetron HCl (Zofran) 4 mg IV Q6H PRN PRN Reason: Nausea / Vomiting Stop: 01/13/18 10:09 Last Admin: 11/14/17 12:51 Dose: 4 mg Pantoprazole Sodium (Protonix) 40 mg PO QDAC [facility] Stop: 01/13/18 07:29 Last Admin: 11/14/17 06:55 Dose: 40 mg Pneumococcal Polyvalent Vaccine (Pneumovax) 0.5 ml IM .ONCE ONE Stop: 11/15/17 18:39 Polyethylene Glycol (Miralax) 17 gm PO DAILY [facility] Stop: 01/13/18 08:59 Last Admin: 11/14/17 10:03 Dose: Not Given Prochlorperazine Maleate (Compazine) 10 mg PO Q6H PRN; Protocol PRN Reason: Nausea / Vomiting Stop: 01/12/18 18:38 Quetiapine Fumarate (Seroquel) 50 mg PO HS [facility]; Protocol Stop: 01/12/18 20:59 Last Admin: 11/13/17 23:04 Dose: Not Given Quetiapine Fumarate (Seroquel) 25 mg PO DAILY [facility]; Protocol Stop: 01/13/18 08:59 Last Admin: 11/14/17 10:02 Dose: 25 mg Senna (Senna) 8.6 mg PO DAILY [facility] Stop: 01/13/18 08:59 Last Admin: 11/14/17 10:02 Dose: 8.6 mg General: no acute distress, well developed, well nourished HEENT: atraumatic, normocephalic, PERRLA Neck: supple, no thyromegaly Cardiovascular: S1S2, regular Lungs: clear to auscultation bilaterally, clear to percussion Abdomen: soft, tender, no distended, no rebound Extremities: no cyanosis, no clubbing, no edema Neurological: awake, alert, oriented Skin: intact - Procedures Procedures: Procedures Procedure Code Date OTHER GROUP THERAPY 94.44 05/07/14 Infectious Disease Assmt/Plan - Assessment Assessment: Diarrhea., Nausea and vomiting. AGE. Improving. - Plan Plan: CPM.
--- NOTE | 2017-11-14 15:49 | History & Physical ---
ADMIT DATE: 11/13/2017 The patient came to the Emergency Room complaining of loose bowel movements. DICTATION ENDS HERE JOB# [id number]
--- NOTE | 2017-11-14 17:49 | History & Physical ---
ADMIT DATE: 11/13/2017 HISTORY OF PRESENT ILLNESS: The patient came with a history of nausea, vomiting, diarrhea x 12, failure to thrive, very poor intake, history of falls, history of trauma with recurrent intermittent leg pain. The patient has no abdominal pain, no shortness of breath and no urinary symptoms. The patient's old chart was reviewed. Nurses' notes were reviewed. PAST MEDICAL HISTORY: History of hypertension, history of coronary artery disease, dysrhythmia, history of dementia, and Parkinson's disease. REVIEW OF SYSTEMS: Otherwise negative. PHYSICAL EXAMINATION: GENERAL: Awake, alert, complains of weakness, unable to eat. HEAD: Normal. ENT: ____ NECK: Supple, nontender. LUNGS: Clear. CARDIOVASCULAR SYSTEM: S1, S2 heard. ABDOMEN: Soft. SKIN: Poor turgor. CENTRAL NERVOUS SYSTEM: The patient is somewhat confused. DIAGNOSES: Failure to thrive, episodes of nausea, vomiting and diarrhea with gastroenteritis, left bundle branch block, and nonspecific ST-T wave changes, rule out ischemia, history of hypertension, history of coronary artery disease, history of dementia and Parkinson's disease. PLAN: The patient is being admitted. I will go ahead and follow the patient. We will give her an ID consult and IV fluids, antibiotics and also will have Neurology consultation as well. JOB# [id number]
[2017-11-15] MEDS: D5-0.45NS 1,000 ML IV SCH ×2 (03:13→16:02)
[2017-11-15] MEDS: metroNIDAZOLE 500mg/NS 100mL 500 MG/100 ML BAG IV SCH ×3 (05:08→20:52)
[2017-11-15] MEDS: Pantoprazole 40 mg EC Tab PO SCH (06:43)
[2017-11-15] MEDS: Aspirin 81mg Chewable Tab PO SCH (09:48)
[2017-11-15] MEDS: Dicyclomine 10 mg Cap PO SCH ×3 (09:48→20:58)
[2017-11-15] MEDS: NYSTATIN 100000 UNITS/GM POWD TP SCH ×2 (10:02→17:08)
[2017-11-15] MEDS: POLYETHYLENE GLYCOL 3350 17 GM PACK PO SCH (10:03)
[2017-11-15 16:21] LABS: ALB/GLOB RATIO 1.1 (1.0-1.8); ALBUMIN 2.9 gm/dL (3.7-5.3); ALKALINE PHOSPHATASE 48 U/L (34-104); ANION GAP 8.5 (7.0-16.0); BILIRUBIN,TOTAL 0.3 mg/dL (0.3-1.0); BUN - UREA NITROGEN 5 mg/dL (7-25); CARBON DIOXIDE 27.9 mEq/L (21.0-31.0); CHLORIDE 103 mEq/L (98-107); CREATININE - SERUM 0.6 mg/dL (0.6-1.2); GLUCOSE 98 mg/dL (70-105); POTASSIUM SERUM 3.4 mEq/L (3.5-5.1); SGOT 22 U/L (13-39); SGPT/ALT 15 U/L (7-52); SODIUM SERUM 136 mEq/L (136-145); TOTAL PROTEIN,SERUM 5.5 gm/dL (6.0-8.3)
[2017-11-15] MEDS ORDERED: Potassium Chloride 20 mEq ER Tab PO ONE (16:40)
[2017-11-15] MEDS ORDERED: Pneumococcal Vaccine 0.5 mL Vial IM ONE (18:38)
--- NOTE | 2017-11-15 21:29 | Progress Notes ---
DATE: PSYCHIATRIC FOLLOW UP CONSULT SUBJECTIVE: Chart reviewed and the patient interviewed. Also discussed the patient's condition with the staff and reviewed records and labs. The patient is calmer than before and she is less irritable and less agitated. Also, decreased the yelling and screaming. She also interacting more appropriately. The patient also continued to comply with taking Seroquel and Depakote with no side effects. ASSESSMENT: The patient is less irritable and less agitated. TREATMENT PLAN: Continue to monitor her behavior and her condition closely. Also, Depakote blood level is pending. Also, continue to monitor her behavior. [facility]# [id number]
--- NOTE | 2017-11-15 22:18 | General Progress Note ---
Subjective - Review of Systems Service Date: 11/15/17 Subjective: afebrile nad Objective - Results Result Diagrams: 11/14/17 07:17 11/15/17 10:35 Recent Labs: Laboratory Last Values WBC 8.7 Th/cmm (4.8-10.8) D 11/14/17 07:17 RBC 4.02 Mil/cmm (3.80-5.20) 11/14/17 07:17 Hgb 12.9 gm/dL (12-16) 11/14/17 07:17 Hct 37.4 % (41.0-60) L 11/14/17 07:17 MCV 93.0 fl (81-100) 11/14/17 07:17 MCH 32.0 pg (27.0-31.0) H 11/14/17 07:17 MCHC Differential 34.4 pg (28.0-36.0) 11/14/17 07:17 RDW 13.3 % (11.5-20.0) 11/14/17 07:17 Plt Count 351 Th/cmm (150-400) 11/14/17 07:17 MPV 7.8 fl 11/14/17 07:17 Neutrophils % 70.7 % (40.0-80.0) 11/14/17 07:17 Lymphocytes % 18.1 % (20.0-50.0) L 11/14/17 07:17 Monocytes % 9.6 % (2.0-10.0) 11/14/17 07:17 Eosinophils % 1.3 % (0.0-5.0) 11/14/17 07:17 Basophils % 0.3 % (0.0-2.0) 11/14/17 07:17 PT 12.0 SECONDS (9.5-11.5) H 11/13/17 13:45 INR 1.14 (0.5-1.4) 11/13/17 13:45 PTT (Actin FS) 25.6 SECONDS (26.0-38.0) L 11/13/17 13:45 Sodium 136 mEq/L (136-145) 11/15/17 10:35 Potassium 3.4 mEq/L (3.5-5.1) L 11/15/17 10:35 Chloride 103 mEq/L (98-107) 11/15/17 10:35 Carbon Dioxide 27.9 mEq/L (21.0-31.0) 11/15/17 10:35 Anion Gap 8.5 (7.0-16.0) 11/15/17 10:35 BUN 5 mg/dL (7-25) L 11/15/17 10:35 Creatinine 0.6 mg/dL (0.6-1.2) 11/15/17 10:35 Est GFR ( Amer) TNP 11/15/17 10:35 Est GFR (Non-Af Amer) TNP 11/15/17 10:35 BUN/Creatinine Ratio 8.3 11/15/17 10:35 Glucose 98 mg/dL (70-105) 11/15/17 10:35 Whole Bld Lactic Acid 1.11 mmol/L (0.60-1.99) 11/13/17 13:45 Calcium 8.0 mg/dL (8.6-10.3) L 11/15/17 10:35 Total Bilirubin 0.3 mg/dL (0.3-1.0) 11/15/17 10:35 AST 22 U/L (13-39) 11/15/17 10:35 ALT 15 U/L (7-52) 11/15/17 10:35 Alkaline Phosphatase 48 U/L (34-104) 11/15/17 10:35 Ammonia 38 umol/L (16-53) 11/15/17 10:35 Creatine Kinase 900 U/L (30-223) H 11/13/17 13:45 CK-MB (CK-2) 12.9 ng/mL (0.6-6.3) H 11/13/17 13:45 Troponin I 0.02 ng/mL (0.01-0.05) 11/13/17 13:45 Total Protein 5.5 gm/dL (6.0-8.3) L 11/15/17 10:35 Albumin 2.9 gm/dL (3.7-5.3) L 11/15/17 10:35 Globulin 2.6 gm/dL 11/15/17 10:35 Albumin/Globulin Ratio 1.1 (1.0-1.8) 11/15/17 10:35 Amylase 36 U/L (29-103) 11/13/17 13:45 Lipase 59 U/L (11-82) 11/13/17 13:45 - Physical Exam Vitals and I&O: Vital Signs Temp 97.3 F 11/15/17 16:07 Pulse 71 11/15/17 16:07 Resp 18 11/15/17 16:07 BP 120/70 11/15/17 16:07 Pulse Ox 98 11/15/17 16:07 Intake & Output 11/15/17 11/15/17 11/16/17 06:59 18:59 06:59 Intake Total 1967.241 1218 Balance 1596.317 8807 Weight (lbs) 81.647 kg Intake: Intake, IV Amount 1762.276 7498 D5-0.45NS 1,000 ml @ 125 0432.603 9235 mls/hr IV .Q8H DAVID Rx#: [id number] metroNIDAZOLE 500mg/NS 200 100 100mL 500 mg In 100 ml @ 100 mls/hr IV Q8HR [facility] Rx #:[id number] Oral 50 Other: Weight Source Bedscale Active Medications: Current Medications Acetaminophen (Tylenol 650mg Supp) 650 mg RC Q4H PRN PRN Reason: mild pain / fever Stop: 01/13/18 12:59 Albuterol/Ipratropium (Duoneb Neb) 3 ml HHN Q4HRT PRN PRN Reason: Shortness of Breath Stop: 01/12/18 18:38 Alendronate Sodium (Fosamax) 70 mg PO Q7D [facility] Stop: 01/17/18 06:29 Aspirin (Aspirin Chewable) 81 mg PO DAILY [facility] Stop: 01/13/18 08:59 Last Admin: 11/15/17 09:48 Dose: 81 mg Atropine Sulfate (Isopto Atropine 1% Oph Soln) 3 drop SL Q3H PRN PRN Reason: excessive secretion Stop: 01/12/18 18:38 Bisacodyl (Dulcolax 10 Mg Supp) 10 mg RC DAILY PRN PRN Reason: Constipation Stop: 01/12/18 18:38 Carbidopa/Levodopa (Sinemet 25mg-100 Mg) 1 tab PO TID [facility] Stop: 01/12/18 20:59 Last Admin: 11/15/17 20:53 Dose: 1 tab Dicyclomine HCl (Bentyl) 20 mg PO TID [facility] Stop: 01/12/18 20:59 Last Admin: 11/15/17 20:58 Dose: 20 mg Divalproex Sodium (Depakote Dr) 250 mg PO BID [facility]; Protocol Stop: 01/13/18 08:59 Last Admin: 11/15/17 17:07 Dose: 250 mg Docusate Sodium (Colace) 250 mg PO BID [facility] Stop: 01/13/18 08:59 Last Admin: 11/15/17 17:07 Dose: 250 mg Gabapentin (Neurontin) 100 mg PO BID [facility] Stop: 01/13/18 08:59 Last Admin: 11/15/17 17:07 Dose: 100 mg Gabapentin (Neurontin) 300 mg PO HS [facility] Stop: 01/12/18 20:59 Last Admin: 11/15/17 20:57 Dose: 300 mg Guaifenesin/Dextromethorphan (Robitussin Dm) 10 ml PO Q4H PRN PRN Reason: Cough Stop: 01/12/18 20:24 Hydromorphone HCl (Dilaudid) 2 mg PO Q2H PRN PRN Reason: Pain (Severe) Stop: 01/12/18 18:38 Last Admin: 11/15/17 16:02 Dose: 2 mg Metronidazole (Flagyl) 500 mg in 100 mls @ 100 mls/hr IV Q8HR [facility] Stop: 01/12/18 20:59 Last Admin: 11/15/17 20:52 Dose: 100 mls/hr Dextrose/Sodium Chloride (D5-0.45ns) 1,000 mls @ 125 mls/hr IV .Q8H [facility] Stop: 01/12/18 19:59 Last Admin: 11/15/17 16:02 Dose: 125 mls/hr Magnesium Hydroxide (Milk Of Magnesia) 30 ml PO HS PRN PRN Reason: Constipation Stop: 01/12/18 18:38 Mirtazapine (Remeron) 15 mg PO HS [facility]; Protocol Stop: 01/12/18 20:59 Last Admin: 11/15/17 20:57 Dose: 15 mg Miscellaneous (Lorazepam [Lorazepam Intensol]) 0.25 ml SL Q4H PRN PRN Reason: Pain (Moderate) Miscellaneous (Morphine Sulfate [Morphine Sulfate]) 0.25 ml PO Q4H PRN PRN Reason: Pain (Severe) Morphine Sulfate (Ms-Contin) 30 mg PO Q8HR [facility] Stop: 01/13/18 04:59 Last Admin: 11/15/17 20:59 Dose: 30 mg Nystatin (Nystop) 0 units TP BID [facility] Stop: 01/13/18 17:59 Last Admin: 11/15/17 17:08 Dose: 1 units Ondansetron HCl (Zofran Odt) 4 mg PO Q6H PRN PRN Reason: Nausea / Vomiting Stop: 01/12/18 18:38 Ondansetron HCl (Zofran) 4 mg IV Q6H PRN PRN Reason: Nausea / Vomiting Stop: 01/13/18 10:09 Last Admin: 11/15/17 10:03 Dose: 4 mg Pantoprazole Sodium (Protonix) 40 mg PO QDAC [facility] Stop: 01/13/18 07:29 Last Admin: 11/15/17 06:43 Dose: 40 mg Polyethylene Glycol (Miralax) 17 gm PO DAILY [facility] Stop: 01/13/18 08:59 Last Admin: 11/15/17 10:03 Dose: Not Given Prochlorperazine Maleate (Compazine) 10 mg PO Q6H PRN; Protocol PRN Reason: Nausea / Vomiting Stop: 01/12/18 18:38 Quetiapine Fumarate (Seroquel) 50 mg PO HS [facility]; Protocol Stop: 01/12/18 20:59 Last Admin: 11/15/17 20:52 Dose: 50 mg Quetiapine Fumarate (Seroquel) 25 mg PO DAILY [facility]; Protocol Stop: 01/13/18 08:59 Last Admin: 11/15/17 10:03 Dose: 25 mg Senna (Senna) 8.6 mg PO DAILY [facility] Stop: 01/13/18 08:59 Last Admin: 11/15/17 09:48 Dose: 8.6 mg General: Alert, No acute distress HEENT: Atraumatic Neck: Supple Cardiovascular: Regular rate Lungs: Clear to auscultation Abdomen: Bowel sounds - Procedures Procedures: Procedures Procedure Code Date OTHER GROUP THERAPY 94.44 05/07/14 Assessment/Plan - Assessment Assessment: diarrhea agitation - Plan Plan: cpm
--- NOTE | 2017-11-16 01:16 | Consultation ---
DATE OF CONSULTATION: 11/15/2017 NEUROLOGY CONSULT HISTORY OF PRESENT ILLNESS: The patient is an 82-year-old, brought in because the patient not eating well, failure to thrive. Also the patient complains of nausea, vomiting and diarrhea. 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 The patient is having more and more difficulty with fall. Complains of pain in the leg especially much worse on the left than the right, seems to involve the whole leg, but predominantly around the knees. PAST MEDICAL HISTORY: Otherwise, also includes hypertension, coronary artery disease, arrhythmias. REVIEW OF SYSTEMS: Twelve point negative except for above. MEDICATIONS: Aspirin 81, Sinemet 25/100 t.i.d., Depakote 250 b.i.d., gabapentin 300 at bedtime, gabapentin 100 b.i.d., Dilaudid, Flagyl, mirtazapine at bedtime, MS Contin p.r.n., pantoprazole, Compazine, Seroquel 50 at bedtime plus 25 during the daytime. PHYSICAL EXAMINATION: VITAL SIGNS: Temperature 98.4, blood pressure 130/70, pulse is 68. NECK: Supple, no bruits. HEART: Sounds S1, S2. LUNGS: Clear. NEUROLOGIC: The patient is lying in bed, awake, alert. She will actually answer her name, but more than that she does not give me what day it is or month. Complains of pain in the leg more on the left than the right. Pupils reactive to light. She will move eyes in all direction. She lifts both arms up very slow, but not much cogwheeling or stiffness. Not much tremor. somewhat more increased tone. INVESTIGATIONS: I do not see any MRI of the brain. I will order that especially in view of the patient history of falls, etc. LABORATORY DATA: WBC is 8.7, hemoglobin 12.9, platelets okay. INR is 1.14. CPK is 900, we will monitor that. Could be secondary to falls, but also she is on number of medications. ASSESSMENT: 1. Encephalopathy. 2. Dementia. 3. Parkinson's. 4. Ataxia falls. 5. Elevated CPK. 6. The patient with hypertension. 7. The patient with leg pain. Workup with x-rays. 8. The patient with nausea or diarrhea. Rule out sepsis. [facility]# [id number]
[2017-11-16] MEDS: D5-0.45NS 1,000 ML IV SCH ×2 (02:53→11:45)
[2017-11-16] MEDS: metroNIDAZOLE 500mg/NS 100mL 500 MG/100 ML BAG IV SCH ×2 (05:51→14:19)
[2017-11-16] MEDS: Pantoprazole 40 mg EC Tab PO SCH (06:41)
[2017-11-16] MEDS: POLYETHYLENE GLYCOL 3350 17 GM PACK PO SCH (08:37)
[2017-11-16] MEDS: Dicyclomine 10 mg Cap PO SCH ×2 (08:37→14:19)
[2017-11-16] MEDS: Aspirin 81mg Chewable Tab PO SCH (08:37)
[2017-11-16] MEDS: NYSTATIN 100000 UNITS/GM POWD TP SCH (08:38)
--- NOTE | 2017-11-16 09:25 | Diagnostic Imaging Report ---
Head CT without intravenous contrast Indication: Ataxia Comparison: Head CT on 03/24/2017 Technique: Axial images were obtained from the vertex to the skull base without IV contrast. Coronal reconstructions were made. Total DLP: 677, CTDI35 FINDINGS: Images of the brain obtained without contrast demonstrate no evidence of an acute hemorrhage atrophy is noted. Moderate white matter disease is noted. The ventricles and basal cisterns are patent. No mass effect or midline shift. Atherosclerosis is noted. There is mucosal thickening in the paranasal sinuses. No evidence of a skull fracture or focal soft tissue swelling. IMPRESSION: No evidence of an acute intracranial hemorrhage. Atrophy. Moderate supratentorial white matter disease which is nonspecific and may be due to chronic microvessel ischemia. Atherosclerotic vascular disease. Mild sinus disease.
--- NOTE | 2017-11-16 20:23 | Progress Notes ---
DATE: 11/16/2017 SUBJECTIVE: Chart reviewed and the patient interviewed. Also discussed the patient's condition with the staff and reviewed records and labs. The patient continued to be severely agitated and irritable. The patient also is interacting minimally with others. The patient also denies any intention to harm herself. She is still withdrawn and guarded. Also, still slightly confused. Otherwise, no side effects of Seroquel or Depakote or Remeron. TREATMENT PLAN: Continue monitoring her condition and continue to adjust medications and followup. [facility]# [id number]
--- NOTE | 2017-11-16 21:05 | Progress Notes ---
DATE: 11/16/2017 SUBJECTIVE: The patient was seen in her room, lying in the bed. The patient appears to be comfortable, in no acute distress, but the patient appears to be forgetful and easily gets agitated. OBJECTIVE: VITAL SIGNS: Temperature 97.4, heart rate 67, blood pressure 130/70, respirations 19, 97% room air. HEENT: Head is atraumatic and normocephalic. Eyes: Bilateral conjunctivae are clear. Bilateral pupils are equally round and reactive. NECK: Supple. No JVD. CARDIOVASCULAR: S1 and S2, without murmur. PULMONARY: Clear to auscultation. GASTROINTESTINAL: Soft and nontender without guarding. Positive bowel sounds. MUSCULOSKELETAL: No clubbing. No cyanosis noted. ASSESSMENT: 1. Encephalopathy. 2. Dementia. 3. Parkinson's disease. 4. Hypertension. PLAN: We will keep the patient inpatient. We will continue current treatment. We will follow up with a neurologist. Treatment plans were discussed with the patient's nurse. Treatment plans were discussed with Dr. Mcconnell. [facility]# [id number]
== END 2017-11-16 16:00 | DRG 391 ==
LOC: ER 13:09 → MSI 15:51
PROVIDERS: ADMIT Internal Medicine; ATTEND Internal Medicine
DX: K52.9 Noninfective gastroenteritis and colitis, unspecified (principal); G93.40 Encephalopathy, unspecified; R65.11 Systemic inflammatory response syndrome (SIRS) of non-infectious origin with acute organ dysfunction; F33.3 Major depressive disorder, recurrent, severe with psychotic symptoms; R62.7 Adult failure to thrive; I44.7 Left bundle-branch block, unspecified; I10 Essential (primary) hypertension; G20 Parkinson's disease; F02.80 Dementia in other diseases classified elsewhere, unspecified severity, without behavioral disturbance, psychotic disturbance, mood disturbance, and anxiety; I25.10 Atherosclerotic heart disease of native coronary artery without angina pectoris; E78.5 Hyperlipidemia, unspecified; E87.6 Hypokalemia; I48.91 Unspecified atrial fibrillation; E86.0 Dehydration; R27.0 Ataxia, unspecified; Z82.49 Family history of ischemic heart disease and other diseases of the circulatory system; Z91.81 History of falling; Z79.82 Long term (current) use of aspirin
CPT/HCPCS: 36415-UA; 70450-TC; 71045-TC; 73521; 80048-TC; 80053-TC; 81003-TC; 82140-TC; 82150-TC; 82550-TC; 82553; 83605; 83690-TC; 84425-90; 84484-TC; 85025-TC; 85610-TC; 85730-TC; 90732; 90799; 93005; 93970-TC-50; 94760; J1956; J2405; J7030; Z7610

== ENCOUNTER 2018-04-12 23:38 | Inpatient (IN) | payer MEDICARE, MEDICAID ==
[2018-04-12] MEDS ORDERED: Sodium Chloride 0.45% 500 ML IV ONE (23:56)
--- NOTE | 2018-04-13 00:03 | ED Physician Chart ---
ED Chief Complaint/HPI - Patient Information Date Seen:: 04/12/18 Time Seen:: 23:45 Chief Complaint:: fell backwards History of Present Illness:: THIS IS AN 82 YO FEMALE INTERMEDIATE PATIENT WHO FELL BACKWARDS AND INJURED HER HEAD AND LEFT BUTTOCK/HIP AREA AT ABOUT 1600 HRS EARLIER TODAY. SHE IS CHRONICALLY ILL WITH PARKINSON, HEART DISEASE AND DEMENTIA. Allergies:: Allergies Allergy/AdvReac Type Severity Reaction Status Date / Time No Known Allergies Allergy Verified 03/24/17 19:05 Vitals:: Vital Signs - 8 hr 04/12/18 23:40 Temp 96.3 F HR 90 RR 18 BP 105/58 O2 Sat % 99 Historian:: EMS, Medical Records Review:: Nurse's Note Reviewed, Old Chart Reviewed, Transfer documents Reviewed ED Review of Systems - Review of Systems General/Constitutional: No fever, No chills, No weight loss, No weakness, No diaphoresis, No edema, No loss of appetite, Other (THIS PATIENT IS UNABLE TO GIVE A REVIEW OF SYSTEMS) Skin: No skin lesions, No rash, No bruising Head: No headache, No light-headedness Eyes: No loss of vision, No pain, No diplopia ENT: No earache, No nasal drainage, No sore throat, No tinnitus Neck: No neck pain, No swelling, No thyromegaly, No stiffness, No mass noted Cardio Vascular: No chest pain, No palpitations, No PND, No orthopnea, No edema Pulmonary: No SOB, No cough, No sputum, No wheezing GI: No nausea, No vomiting, No diarrhea, No pain, No melena, No hematochezia, No constipation, No hematemesis G/U: No dysuria, No frequency, No hematuria Musculoskeletal: No bone or joint pain, No back pain, No muscle pain Endocrine: No polyuria, No polydipsia Psychiatric: No prior psych history, No depression, No anxiety, No suicidal ideation Hematopoietic: No bruising, No lymphadenopathy Allergic/Immuno: No urticaria, No angioedema Neurological: No syncope, No focal symptoms, No weakness, No paresthesia, No headache, No seizure, No dizziness, No confusion, No vertigo ED Past Medical History - Past Medical History Obtainable: Yes Past Medical History: CAD, Dementia, Other (PARKINSONS) Social History: Non Smoker, No Alcohol, No Drug Use, Care Facility Family Medical History - Family Member Mother History Unknown: Yes Ethnicity: Non- Living Status: Unknown Hx Family Cancer: (unknown) Hx Family Coronary Artery Disease: (unknown) Hx Family Congestive Heart Failure: (unknown) Hx Family Hypertension: (unknown) Hx Family Stroke: (unknown) Hx Family Diabetes: (unknown) Hx Family Seizures: (unknown) Hx Family Dementia: (unknown) Hx Family AIDS: (unknown) Hx Family COPD: (unknown) Hx Family Hepatitis: (unknown) Hx Family Psychiatric Problems: (unknown) Hx Family Tuberculosis: (unknown) ED Physical Exam - Physical Examination General/Constitutional: Awake, Well-developed, well-nourished, Alert, No distress, GCS 15, Non-toxic appearing, Ambulatory Other Gen/Cons comments:: LETHARGIC Head: Atraumatic (THERE IS A SMALL HEMATOMA ON THE LEFT OCCIPITAL AREA OF THE HEAD) Eyes: Lids, conjuctiva normal, PERRL, EOMI Skin: Nl inspection, No rash, No skin lesions, No ecchymosis, Well hydrated, No lymphadenopathy ENMT: External ears, nose nl, Nasal exam nl, Lips, teeth, gums nl Neck: Nontender, Full ROM w/o pain, No JVD, No nuchal rigidity, No bruit, No mass, No stridor Respiratory: Nl effort/Exclusion, Clear to Auscultation, No Wheeze/Rhonchi/Rales Cardio Vascular: RRR, No murmur, gallop, rubs, NL S1 S2 GI: No tenderness/rebounding/guarding, No organomegaly, No hernia, Normal BS's, Nondistended, No mass/bruits, No McBurney tenderness : No CVA tenderness Extremities: No tenderness or effusion, Full ROM, normal strength in all extremities, No edema, Normal digits & nails Neuro/Psych: Alert/oriented, DTR's symmetric, Normal sensory exam, Normal motor strength, Judgement/insight normal, Mood normal, Normal gait, No focal deficits Misc: Normal back (THERE IS A LARGE HEMATOMA ON THE LEFT UPPER BACK/BUTTOCKS AREA), No paraspinal tenderness ED Labs/Radiology/EKG Results - Lab Results Results: Abnormal Lab Results 04/12/18 04/12/18 04/12/18 23:55 23:55 23:55 WBC 12.6 H RBC 3.89 Hgb 11.2 L Hct 34.1 L MCV 87.7 MCH 28.7 MCHC Differential 32.7 RDW 13.8 Plt Count 416 H MPV 8.2 Neutrophils % 85.5 H Lymphocytes % 9.9 L Monocytes % 3.8 Eosinophils % 0.2 Basophils % 0.6 PT 10.7 INR 1.03 PTT (Actin FS) 19.6 L Sodium 136 Potassium 4.0 Chloride 100 Carbon Dioxide 24.5 Anion Gap 15.5 BUN 39 H Creatinine 0.9 Est GFR ( Amer) TNP Est GFR (Non-Af Amer) TNP BUN/Creatinine Ratio 43.3 Glucose 136 H Calcium 9.7 Total Bilirubin 0.4 AST 25 ALT 7 Alkaline Phosphatase 71 Troponin I Total Protein 6.7 Albumin 3.5 L Globulin 3.2 Albumin/Globulin Ratio 1.1 TSH Urine Source Urine Color Urine Clarity Urine pH Ur Specific [place] Urine Protein Urine Glucose (UA) Urine Ketones Urine Blood Urine Nitrate Urine Bilirubin Urine Urobilinogen Ur Leukocyte Esterase Urine RBC Urine WBC Ur Epithelial Cells Urine Bacteria 04/12/18 04/12/18 04/13/18 23:55 23:55 01:30 WBC RBC Hgb Hct MCV MCH MCHC Differential RDW Plt Count MPV Neutrophils % Lymphocytes % Monocytes % Eosinophils % Basophils % PT INR PTT (Actin FS) Sodium Potassium Chloride Carbon Dioxide Anion Gap BUN Creatinine Est GFR ( Amer) Est GFR (Non-Af Amer) BUN/Creatinine Ratio Glucose Calcium Total Bilirubin AST ALT Alkaline Phosphatase Troponin I 0.01 Total Protein Albumin Globulin Albumin/Globulin Ratio TSH 1.58 Urine Source CLEAN C Urine Color YELLOW Urine Clarity CLEAR Urine pH 5.5 Ur Specific [place] >= 1.030 Urine Protein TRACE Urine Glucose (UA) NEGATIVE Urine Ketones 15 H Urine Blood NEGATIVE Urine Nitrate NEGATIVE Urine Bilirubin SMALL H Urine Urobilinogen 1.0 Ur Leukocyte Esterase NEGATIVE Urine RBC NONE SEEN Urine WBC 0-2 Ur Epithelial Cells OCCASIONAL Urine Bacteria MODERATE H - Radiology Results Results: ct scan of the head = no acute fracture seen ct scan of the abdomen and pelvis = fx of the right 9th and 10th rib large hematoma of the left lower back area - EKG Interpretations EKG Time:: 12:11 Rate & Rhythm: 88 SINUS [place]: LEFT AXIS ED Assessment - Assessment General Assessment: TRAUMA TO THE HEAD AND LEFT HIP ED Septic Shock - . Is Septic Shock (SBP<90, OR Lactate>4 mmol\L) present?: No - <6hrs of presentation: Vital Signs: Vital Signs - 8 hr 04/12/18 23:40 Temp 96.3 F HR 90 RR 18 BP 105/58 O2 Sat % 99 ED Reassessment (Disposition) - Diagnosis Diagnosis:: LEFT HIP CONTUSION with a large hematoma CONTUSION OF THE HEAD RIGHT 9TH AND 10 RIB FRACTURES ANEMIA ELEVATED BUN DEMENTIA ELEVATED PLATLETS - Patient Disposition Discharge/Transfer:: Acute Care w/in this hosp Admitting Medical Physician:: Patrice Good Condition at Disposition:: Improved
[2018-04-13 00:09] LABS: % BASOPHILS 0.6 % (0.0-2.0); % EOSINOPHILS 0.2 % (0.0-5.0); % LYMPHOCYTES 9.9 % (20.0-50.0); % MONOCYTES 3.8 % (2.0-10.0); % NEUTROPHILS 85.5 % (40.0-80.0); BASOPHILE ABSOLUTE 0.1 Th/cumm (0-0.2); HEMATOCRIT 34.1 % (41.0-60); HEMOGLOBIN 11.2 gm/dL (12-16); LYMPHOCYTE ABSOLUTE 1.2 Th/cmm (1.5-3.0); MEAN CELL VOLUME 87.7 fl (81-100); MEAN CORPUSCULAR HEMOGLOBIN 28.7 pg (27.0-31.0); MEAN CORPUSCULAR HGB CONC 32.7 pg (28.0-36.0); MEAN PLATELET VOLUME 8.2 fl; MONOCYTE ABSOLUTE 0.5 Th/cmm (0.3-1.0); NEUTROPHILE ABSOLUTE 10.8 Th/cmm (1.8-8.0); PLATELET COUNT 416 Th/cmm (150-400); RED BLOOD COUNT 3.89 Mil/cmm (3.80-5.20); RED CELL DISTRIBUTION WIDTH 13.8 % (11.5-20.0); WHITE BLOOD COUNT 12.6 Th/cmm (4.8-10.8)
[2018-04-13 00:22] LABS: ALB/GLOB RATIO 1.1 (1.0-1.8); ALBUMIN 3.5 gm/dL (3.7-5.3); ALKALINE PHOSPHATASE 71 U/L (34-104); ANION GAP 15.5 (7.0-16.0); BILIRUBIN,TOTAL 0.4 mg/dL (0.3-1.0); BUN - UREA NITROGEN 39 mg/dL (7-25); CALCIUM SERUM 9.7 mg/dL (8.6-10.3); CARBON DIOXIDE 24.5 mEq/L (21.0-31.0); CHLORIDE 100 mEq/L (98-107); CREATININE - SERUM 0.9 mg/dL (0.6-1.2); GLUCOSE 136 mg/dL (70-105); SGOT 25 U/L (13-39); SGPT/ALT 7 U/L (7-52); SODIUM SERUM 136 mEq/L (136-145); TOTAL PROTEIN,SERUM 6.7 gm/dL (6.0-8.3)
[2018-04-13 01:25] LABS: INR 1.03 (0.5-1.4); PROTHROMBIN TIME (TEST) 10.7 SECONDS (9.5-11.5)
[2018-04-13 01:32] LABS: URINE SOURCE CLEAN C
[2018-04-13 01:34] LABS: URINE BILIRUBIN SMALL (NEGATIVE); URINE BLOOD NEGATIVE (NEGATIVE); URINE GLUCOSE (UA) NEGATIVE (NEGATIVE); URINE KETONE 15 mg/dL (NEGATIVE); URINE LEUKOCYTE ESTERASE NEGATIVE (NEGATIVE); URINE MICROSCOPIC INDICATED? YES; URINE NITRATE NEGATIVE (NEGATIVE); URINE PH 5.5 (4.6 - 8.0); URINE PROTEIN TRACE mg/dL (NEGATIVE)
[2018-04-13 01:42] LABS: URINE CLARITY CLEAR (CLEAR); URINE COLOR YELLOW
[2018-04-13 01:43] LABS: URINE EPITHELIAL CELLS OCCASIONAL /lpf (FEW); URINE RBC NONE SEEN /hpf (0-5); URINE WBC 0-2 /hpf (0-5)
[2018-04-13 01:44] LABS: URINE BACTERIA MODERATE /hpf (NONE SEEN)
[2018-04-13] MEDS ORDERED: D5-0.45NS 1,000 ML IV SCH (05:29)
[2018-04-13 07:41] VITALS: BP 113/68
[2018-04-13] MEDS: D5-0.45NS 1,000 ML IV SCH (09:25)
--- NOTE | 2018-04-13 09:41 | Diagnostic Imaging Report ---
Exam: Left hip joint HISTORY trauma Findings: Single frontal examination of left hip joint was reviewed. The study suboptimal for interpretation due to lack of positioning and cooperation with the patient. CT examination recommended. IMPRESSION: Suboptimal evaluation of the left hip joint.
--- NOTE | 2018-04-13 09:42 | Diagnostic Imaging Report ---
Portable chest x-ray Time: 0453 hours History: Trauma Allowing for portable technique the heart size is normal. No focal pulmonary parenchymal processes. No hilar or mediastinal abnormalities. The visualized bony thorax is intact. The patient is rotated. Impression: No acute abnormalities.
[2018-04-13] MEDS ORDERED: DICYCLOMINE HCL 20 MG PO SCH (09:45)
--- NOTE | 2018-04-13 09:51 | Diagnostic Imaging Report ---
Exam: CT examination abdomen pelvis. HISTORY: Trauma Total DLP equals 676 CTDI equals 13.7 Findings: Multiple views of the section of the abdomen pelvis obtained from lower thorax to pubic symphysis without administration material therefore the study is limited. No prior studies available comparison. The study demonstrates normal aeration of lung parenchyma the bases. The visualized the liver is intact. There is evidence of for 3.4 cm cyst in the right lobe of liver. There is evidence of previous cholecystectomy. The spleen is normal. The pancreas poorly visualized. No free fluid is noted in the abdomen. The kidneys demonstrate no evidence of obstructive uropathy or nephrolithiasis. There is evidence for large amount of subcutaneous soft tissue swelling in the left lower back extending into the left pelvic area posteriorly. The left bony pelvis is intact. Uterus is calcified. Fusion bladder is normal. The visualized hip joints are intact. IMPRESSION: Significant amount of subcutaneous soft tissue swelling lower left back extending into the area of the sacrum towards the midline. No evidence of fracture dislocation.
--- NOTE | 2018-04-13 09:54 | Diagnostic Imaging Report ---
CT scan of the brain without intravenous contrast HISTORY: Trauma Total DLP equals 651 CTDI equals 34.8 Axial sections were obtained from the base of the skull to the vertex. There is prominence/enlargement of the ventricular system size. Associated enlargement of cerebral sulci and subarachnoid cisterns. Findings are consistent with changes of generalized cerebral atrophy. No acute parenchymal abnormalities. No acute cerebral hemorrhage. Hypodensity is seen within the supratentorial white matter regions without mass effect. The findings may be associated with chronic small vessel ischemic disease. No extra-axial masses or abnormal fluid collections. There is evidence for extensive sinusitis. Subcutaneous soft tissue swelling at the apex. IMPRESSION: 1. No acute abnormalities 2. Cerebral atrophy 3. Supratentorial white matter changes that may reflect chronic small vessel ischemic disease 4. Extensive sinusitis
[2018-04-13] MEDS: LEVODOPA PO SCH ×2 (11:41→17:40)
[2018-04-13] MEDS: CARBIDOPA PO SCH ×2 (11:41→17:40)
[2018-04-13] MEDS: POLYETHYLENE GLYCOL 3350 17 GM PACK PO SCH (11:41)
[2018-04-13 12:06] LABS: % BASOPHILS 0.9 % (0.0-2.0); % EOSINOPHILS 0.6 % (0.0-5.0); % LYMPHOCYTES 26.5 % (20.0-50.0); % MONOCYTES 11.4 % (2.0-10.0); % NEUTROPHILS 60.6 % (40.0-80.0); BASOPHILE ABSOLUTE 0.1 Th/cumm (0-0.2); EOSINOPHILE ABSOLUTE 0.1 Th/cmm (0.1-0.4); HEMATOCRIT 28.6 % (41.0-60); HEMOGLOBIN 9.7 gm/dL (12-16); LYMPHOCYTE ABSOLUTE 2.8 Th/cmm (1.5-3.0); MEAN CELL VOLUME 83.8 fl (81-100); MEAN CORPUSCULAR HEMOGLOBIN 28.5 pg (27.0-31.0); MEAN CORPUSCULAR HGB CONC 34.1 pg (28.0-36.0); MEAN PLATELET VOLUME 7.8 fl; MONOCYTE ABSOLUTE 1.2 Th/cmm (0.3-1.0); NEUTROPHILE ABSOLUTE 6.3 Th/cmm (1.8-8.0); PLATELET COUNT 403 Th/cmm (150-400); RED BLOOD COUNT 3.41 Mil/cmm (3.80-5.20); RED CELL DISTRIBUTION WIDTH 13.7 % (11.5-20.0); WHITE BLOOD COUNT 10.5 Th/cmm (4.8-10.8)
[2018-04-13 12:25] LABS: ALB/GLOB RATIO 1.2 (1.0-1.8); ALBUMIN 3.1 gm/dL (3.7-5.3); ALKALINE PHOSPHATASE 62 U/L (34-104); ANION GAP 14.5 (7.0-16.0); BILIRUBIN,TOTAL 0.3 mg/dL (0.3-1.0); BUN - UREA NITROGEN 40 mg/dL (7-25); CALCIUM SERUM 9.1 mg/dL (8.6-10.3); CHLORIDE 101 mEq/L (98-107); CREATININE - SERUM 0.8 mg/dL (0.6-1.2); CREATININE KINASE 43 U/L (30-223); GLUCOSE 107 mg/dL (70-105); POTASSIUM SERUM 3.5 mEq/L (3.5-5.1); SGOT 20 U/L (13-39); SGPT/ALT 13 U/L (7-52); SODIUM SERUM 137 mEq/L (136-145); TOTAL PROTEIN,SERUM 5.8 gm/dL (6.0-8.3)
--- NOTE | 2018-04-13 12:46 | History & Physical ---
ADMIT DATE: PATIENT IDENTIFICATION: This is an 82-year-old female. CHIEF COMPLAINT: "I don't have pain." HISTORY SOURCE: Talking to the Emergency Room MD and reviewing the chart from [facility] as well as [facility]. HISTORY OF PRESENT ILLNESS: An 82-year-old female who resides at [facility], has a diagnosis of Parkinson's disease along with dementia and advanced osteoarthritis brought into the Emergency Room by paramedics after the patient fell backwards and landed on her back and injured her lower back and her head. The patient was also noted to have a significant amount of bruising. The patient was advised to be bruising. The patient was seen by Emergency Room MD. The patient was worked up in the Emergency Room and subsequently advised to be admitted considering patient a significant amount of hematoma on her scalp as well as on her lower back area and the patient was complaining of pain on her right hip. PAST MEDICAL HISTORY: Remarkable for: 1. Alzheimer's type dementia. 2. Parkinson's disease. 3. DJD. 4. Osteoporosis. 5. Psychotic disorder. 6. Chronic constipation. MEDICATIONS AT HOME: Aspirin, magnesium hydroxide, Sinemet, dicyclomine, gabapentin, Namenda, multivitamin, Zofran, MiraLax, and Seroquel. ALLERGIES: The patient is not allergic to medications. SOCIAL HISTORY: The patient resides in an assisted living facility. No history of smoking cigarette, alcohol, or drug use. FAMILY MEDICAL HISTORY: Unavailable. REVIEW OF SYSTEMS: Unable to get meaningful history from the patient. PHYSICAL EXAMINATION: GENERAL: An 82-year-old female lying in the bed, pleasantly demented. VITAL SIGNS: Temperature 97.6, pulse 74, respiratory rate is 18, blood pressure 103/64. HEENT: Normocephalic, atraumatic. Palpable occipital hematoma noted. Intraocular lens implant noted. Tongue was pink and coated. Poor dentition noted. NECK: Supple, no JVD. No hepatojugular reflex. No lymphadenopathy, thyromegaly or carotid bruit. HEART: Both heart sounds are regular. No S3, no S4, no murmur. CHEST AND LUNGS: Equal in expansion, no expiratory wheezing. ABDOMEN: Soft. No guarding, no rigidity. Mild left lower quadrant tenderness noted. Bowel sounds are present. No palpable mass. EXTREMITIES: No edema, no cyanosis. Peripheral +1. No calf tenderness noted. MUSCULOSKELETAL: Tension to the both lower extremities. Ankle has a good range of motion. Knee has a good range of motion. On the both hip examination, left hip, no range of motions are present. On the right hip has range of are limited and painful. No pelvis tenderness noted. BACK: Unremarkable. Well-healed surgical scar on the lower back area noted. The lumbar area significant amount of hematoma in the back noted with sacroiliac joint tenderness noted. NEUROLOGIC: Alert, awake, follows commands, but unable to follow complex command on mini mental status examination, the patient score for 6/30. AVAILABLE DIAGNOSTIC DATA: CT scan of the abdomen and pelvis remarkable for significant amount of subcutaneous soft tissue swelling extending into the area of the sacrum, but no evidence of any fracture or dislocation noted. CT scan of the head was also done, no acute abnormality, cerebral atrophy. Supratentorial white matter changes, reflecting chronic small vessel disease, extensive sinusitis noted. No evidence of any intracranial bleed noted. Hip x-rays performed in the Emergency Room. A suboptimal evaluation of the left hip joint. Chest x-ray done in ER, no acute abnormalities. CLINICAL IMPRESSION: 1. Status post mechanical fall with injury to the lower back consistent with hematoma involving sacral area, needs to observe for increasing in size with a worry about rhabdomyolysis and acute hemorrhagic anemia. 2. Right hip joint pain needs further evaluation. I do not see any x-rays of the right hip. 3. Alzheimer's type dementia. 4. Occipital hematoma. 5. Extensive sinusitis. 6. Degenerative joint disease. 7. Osteoporosis. 8. Diverticulosis by CT scan. PLAN: 1. Proceed with CT scan of the right hip joint and pelvis. 2. Orthopedic consultation. 3. Appropriate home medicine reconciliation. 4. Admission labs. 5. Check CPK. 6. Monitor hemoglobin. 7. Follow lab. 8. Follow consult recommendation. 9. Care plan reviewed with RN. JOB# [id number]
[2018-04-14 00:30] LABS: HEMATOCRIT 26.2 % (41.0-60); HEMOGLOBIN 8.8 gm/dL (12-16)
--- NOTE | 2018-04-14 01:02 | Consultation ---
DATE OF CONSULTATION: 04/13/2018 ORTHOPEDIC SURGERY CONSULTATION The patient is an 82-year-old lady admitted to [facility] on 04/13/2018 via the Emergency Room. She is being seen through the courtesy of her admitting physician, Dr. Good. HISTORY OF PRESENT ILLNESS: The patient is not able to give meaningful answers to questions high posed to her. Information I have, was obtained from the chart and medical record. She is brought to the Emergency Room from her residence at [facility] following a fall where she struck her head and back and was complaining of hip pain. She was found to have a large hematoma on her back and her scalp on the back of her head. She was worked up for possible hip fracture. I was called in orthopedic consultation regarding this possibility. ADDITIONAL PAST HISTORY: She has diagnoses of psychotic disorder, Alzheimer type dementia, Parkinson disease, osteoporosis, arthritis, anemia, elevated BUN, elevated platelets. FAMILY HISTORY AND SOCIAL HISTORY: Otherwise unknown . PHYSICAL EXAMINATION: GENERAL: The patient is examined in her hospital room at [facility]. She was somewhat agitated and rolling from side to side in the bed and trying to get up. HEENT: Inspection of her head revealed the hematoma back to the scalp. EXTREMITIES: Upper extremity is unremarkable. She had multiple bruises almost everywhere. There is a large hematoma over the sacrum. I was able to move both hips and lower extremities well and it did not seem to cause her pain. There was no deformity or unusual posturing of either hip or lower extremity. NEUROLOGIC: Difficult to assess. She had good symmetrical strength of all extremities. IMAGING DATA: I reviewed images in the PACS, x-rays of hips and pelvis. She is lying somewhat on her side and I do not get a good view of either hip, but no fractures are noted. There may be some arthritis of the left hip. CT of the abdomen and pelvis, no fracture is noted in the pelvis and hips. There is a CT of the abdomen that shows fractures of the right 9th and 10th ribs. ORTHOPEDIC DIAGNOSES: 1. Contusion of hips. 2. Arthritis. 3. Fractures right 9th and 10th ribs. 4. Multiple bruising and hematoma formation. 5. Additional diagnoses and medical diagnoses as above. RECOMMENDATIONS: The patient does not require any active orthopedic treatment at this time. She is at high risk for falls and some appropriate care should be taken that she does not fall and further injure herself. She can receive medication in the form of NSAIDs and mild analgesics for her arthritic type pain as needed. Thank you for this interesting referral. JOB# [id number]
[2018-04-14 05:38] LABS: % EOSINOPHILS 1.9 % (0.0-5.0); % MONOCYTES 10.1 % (2.0-10.0); BASOPHILE ABSOLUTE 0.1 Th/cumm (0-0.2); EOSINOPHILE ABSOLUTE 0.2 Th/cmm (0.1-0.4); HEMATOCRIT 27.7 % (41.0-60); HEMOGLOBIN 9.3 gm/dL (12-16); LYMPHOCYTE ABSOLUTE 3.4 Th/cmm (1.5-3.0); MEAN CELL VOLUME 85.7 fl (81-100); MEAN CORPUSCULAR HEMOGLOBIN 28.8 pg (27.0-31.0); MEAN CORPUSCULAR HGB CONC 33.6 pg (28.0-36.0); MEAN PLATELET VOLUME 8.7 fl; MONOCYTE ABSOLUTE 0.9 Th/cmm (0.3-1.0); NEUTROPHILE ABSOLUTE 4.2 Th/cmm (1.8-8.0); PLATELET COUNT 367 Th/cmm (150-400); RED BLOOD COUNT 3.23 Mil/cmm (3.80-5.20); RED CELL DISTRIBUTION WIDTH 13.6 % (11.5-20.0); WHITE BLOOD COUNT 8.8 Th/cmm (4.8-10.8)
[2018-04-14] MEDS: Hydrocodone/APAP 10 mg/325 mg Tab PO PRN ×2 (06:10→21:24)
[2018-04-14] MEDS ORDERED: Pneumococcal Vaccine 0.5 mL Vial IM ONE (09:00)
[2018-04-14] MEDS ORDERED: Influenza Vaccine (65 yr & older) 0.5 ml Syr IM ONE (09:00)
[2018-04-14] MEDS ORDERED: Non-Formulary Item 1 EA (Multivitamin [Multivitamins] 1 CAP) PO SCH (09:00)
[2018-04-14] MEDS ORDERED: VTE Chemical Prophylaxis Screen/Admission MC PRN (09:01)
--- NOTE | 2018-04-14 09:10 | Diagnostic Imaging Report ---
CT Chest without IV contrast HISTORY: Shortness of breath COMPARISON: Chest x-ray on 04/13/[address] abdomen and pelvis on 04/13/2018 Technique: Axial images were obtained from the base of the neck to the upper abdomen without administration of IV contrast. Reconstructions were made. Total DLP 178, CTD I 4.9 Findings: Evaluation of mediastinum is limited due to lack of IV contrast. Multiple calcified thyroid nodules are noted the largest in the left lobe measuring 1.2 cm. No mediastinal lymphadenopathy. The ascending aorta measures up to 3.5 cm. Moderate atherosclerosis is noted. No pericardial effusion. Heart size is normal. The lung andrade demonstrate mild chronic changes with hypoventilatory atelectatic changes also noted. Few 2 mm nodular densities are seen the largest along the right apex (image 12, series 3). Areas of slight irregularity and thickening along the pleural margins are also noted. There is mild prominence of the right basal pleural fat. The upper abdomen demonstrates evidence of prior there is a 3 cm low-density lesion in the right lower liver. Nasal 1.1 cm cm left renal cyst is noted. There is elevation of the right hemidiaphragm. Degenerative changes of the spine are noted. Old right rib fractures are noted. IMPRESSION: Mild hypoventilatory and atelectatic lung changes. No focal consolidation identified. Few Tiny nodular densities of the lungs, nonspecific and probably due to infectious or inflammatory process. Consider follow surveillance in 12 months, if indicated Moderate atherosclerotic vascular disease Calcified thyroid nodules. Consider short-term follow-up with ultrasound 3 cm low-density lesion of the liver probably a cyst. Ultrasound would further clarify. Evidence of prior cholecystectomy.
[2018-04-14 09:23] LABS: ALB/GLOB RATIO 1.1 (1.0-1.8); ALKALINE PHOSPHATASE 59 U/L (34-104); ANION GAP 12.4 (7.0-16.0); BILIRUBIN,TOTAL 0.3 mg/dL (0.3-1.0); BUN - UREA NITROGEN 32 mg/dL (7-25); CARBON DIOXIDE 26.1 mEq/L (21.0-31.0); CHLORIDE 104 mEq/L (98-107); CREATININE - SERUM 0.7 mg/dL (0.6-1.2); GLUCOSE 105 mg/dL (70-105); MAGNESIUM 1.8 mg/dL (1.9-2.7); POTASSIUM SERUM 3.5 mEq/L (3.5-5.1); SGOT 18 U/L (13-39); SGPT/ALT 15 U/L (7-52); SODIUM SERUM 139 mEq/L (136-145); TOTAL PROTEIN,SERUM 5.7 gm/dL (6.0-8.3)
[2018-04-14] MEDS: POLYETHYLENE GLYCOL 3350 17 GM PACK PO SCH (09:58)
[2018-04-14] MEDS: Dicyclomine 10 mg Cap PO SCH ×3 (10:01→21:24)
[2018-04-14] MEDS: Multivitamin Tab PO SCH (10:02)
--- NOTE | 2018-04-14 10:07 | Diagnostic Imaging Report ---
Right hip 2 views Indication: Trauma Comparison: CT abdomen and pelvis on 04/13/2018 Findings: Mild degenerative changes of the bilateral hip joints are noted. No evidence of an acute fracture or dislocation. Degenerative changes of SI joints are noted. Nonspecific calcifications are seen along the pelvic region. Degenerative changes lower lumbar spine are noted. Impression: No evidence of an acute fracture. Degenerative changes. In the setting of trauma, if clinical symptoms persist and there is continued concern for an occult fracture, follow up exams in 5-7 days is suggested.
--- NOTE | 2018-04-14 10:26 | Diagnostic Imaging Report ---
Left hip 2 views Indication: Fracture Comparison: Pelvis and right hip x-rays the same day and CT abdomen and pelvis exam on 04/13/2018 Findings: Mild degenerative changes in the left hip joint are noted. There is calcification along left lateral femoral neck region which probably represents an osteophyte within compared to recent CT examination. Calcification of the pelvis likely represent calcified fibroids compared to previous CT abdomen and pelvis exam. Impression: Calcification along left lateral femoral neck region which probably represents an osteophyte when compared to recent CT examination. If there is continued concern for an occult fracture, CT examination is recommended for further assessment. Mild degenerative changes. In the setting of trauma, if clinical symptoms persist and there is continued concern for an occult fracture, follow up exams in 5-7 days is suggested.
[2018-04-14 12:06] LABS: HEMOGLOBIN 8.5 gm/dL (12-16)
[2018-04-14] MEDS: D5-0.45NS 1,000 ML IV SCH (14:37)
--- NOTE | 2018-04-15 03:33 | Progress Notes ---
DATE: 04/14/2018 SUBJECTIVE: The patient seen and examined. The patient is lying in the bed. The patient is pleasantly demented, just x-rays done so far. X-ray clinically looks normal. The patient is not ambulating. The patient is pleasantly demented, unable to get meaningful history from the patient. PHYSICAL EXAMINATION: VITAL SIGNS: Temperature 97.5, pulse 87, respirations 18, blood pressure 132/47. HEENT: No facial asymmetry. NECK: Supple, no JVD. HEART: Irregular. CHEST AND LUNGS: Equal in expansion, no expiratory wheezing. ABDOMEN: Soft. No guarding, no rigidity. Bowel sounds present. No palpable mass. EXTREMITIES: No edema. Range of motions on both hips are limited. BACK: Multiple lower back hematoma noted. AVAILABLE DIAGNOSTIC DATA: White count of 8.18, hemoglobin 9.3, platelet count 367. BUN and creatinine is 30 and 0.7, magnesium of 1.8. CLINICAL IMPRESSION: 1. Status post fall with hematoma on the back. 2. Bilateral hip contusion. 3. Normocytic normochromic anemia. Home hemoglobin 11.2-9.3. Suspect possibly secondary to acute hemorrhagic anemia and secondary to hematoma. 4. Debility. 5. Dementia. 6. Parkinson's disease. PLAN: 1. In the view of her drop in hemoglobin, I will reevaluate her CBC tomorrow. 2. Provide physical therapy and occupational therapy. 3. Pain management. 4. General nursing care. 5. Follow lab. 6. Follow consult recommendation. 7. Care plan reviewed and discussed with staff. JOB# [id number]
[2018-04-15 05:13] LABS: % EOSINOPHILS 4.3 % (0.0-5.0); % LYMPHOCYTES 36.8 % (20.0-50.0); % MONOCYTES 9.7 % (2.0-10.0); % NEUTROPHILS 49.2 % (40.0-80.0); EOSINOPHILE ABSOLUTE 0.4 Th/cmm (0.1-0.4); HEMATOCRIT 24.4 % (41.0-60); HEMOGLOBIN 8.1 gm/dL (12-16); LYMPHOCYTE ABSOLUTE 3.8 Th/cmm (1.5-3.0); MEAN CELL VOLUME 86.3 fl (81-100); MEAN CORPUSCULAR HEMOGLOBIN 28.7 pg (27.0-31.0); MEAN CORPUSCULAR HGB CONC 33.2 pg (28.0-36.0); MEAN PLATELET VOLUME 7.9 fl; PLATELET COUNT 349 Th/cmm (150-400); RED BLOOD COUNT 2.83 Mil/cmm (3.80-5.20); RED CELL DISTRIBUTION WIDTH 13.7 % (11.5-20.0); WHITE BLOOD COUNT 10.2 Th/cmm (4.8-10.8)
[2018-04-15 06:06] LABS: ALB/GLOB RATIO 1.1 (1.0-1.8); ALBUMIN 2.6 gm/dL (3.7-5.3); ALKALINE PHOSPHATASE 51 U/L (34-104); ANION GAP 9.5 (7.0-16.0); BILIRUBIN,TOTAL 0.3 mg/dL (0.3-1.0); BUN - UREA NITROGEN 23 mg/dL (7-25); CALCIUM SERUM 8.3 mg/dL (8.6-10.3); CARBON DIOXIDE 27.5 mEq/L (21.0-31.0); CHLORIDE 106 mEq/L (98-107); CREATININE - SERUM 0.6 mg/dL (0.6-1.2); CREATININE KINASE 28 U/L (30-223); GLUCOSE 103 mg/dL (70-105); SGOT 18 U/L (13-39); SGPT/ALT 5 U/L (7-52); SODIUM SERUM 139 mEq/L (136-145)
[2018-04-15] MEDS: D5-0.45NS 1,000 ML IV SCH ×2 (06:53→16:10)
--- NOTE | 2018-04-15 08:07 | Diagnostic Imaging Report ---
CT scan lumbar spine HISTORY: Pain Total DLP equals 1346 CTDI equals 46.7 Axial sections were obtained through the lumbar spine. Additional sagittal and coronal reformatted images are provided. There is generalized osteoporosis. Diffuse degenerative changes are seen with spur formation noted about the endplates of the vertebrae. Narrowing of the L2-3 interspace. Air is seen within this interspace reflecting degenerative disc disease. Marked narrowing the L4-5 interspace. No obvious extradural abnormalities are seen. Atherosclerotic calcification seen in the aorta. Generalized increased density noted within the subcutaneous soft tissues over the dorsal aspect of the spine. Changes correspond to findings noted on earlier CT scan of 04/13/2018. Exact etiology uncertain. Findings may be associated with edema. Posttraumatic hematoma cannot be excluded. Clinical correlation and correlation with patient history needed. IMPRESSION: 1. No acute bony abnormalities 2. Degenerative changes as noted above 3. Extensive density within the subcutaneous fatty tissues over the dorsal aspect of the spine. Exact etiology uncertain. Changes may be associated with edema. Posttraumatic hematoma cannot be excluded. Clinical correlation and correlation with history needed.
--- NOTE | 2018-04-15 08:09 | Diagnostic Imaging Report ---
CT scan of the pelvis without intravenous contrast HISTORY: Pain Total DLP equals 435 CTDI equals 14.1 Axial sections were obtained from a level above the iliac crest down to level below the pubic symphysis. No acute bony abnormality is. No fractures. Hip joints appear normal. The femoral heads exhibit normal contours. Degenerative changes noted in the lower lumbar spine. There is a normal size uterus associated multiple calcifications consistent with fibroid changes. No other abnormal masses or fluid collections seen within the pelvis. As noted in a separate CTD abdomen/pelvis and CT lumbar spine exam, there is extensive abnormal density within the subcutaneous tissues over the dorsal aspect of the lower spine. Again, exact etiology remains uncertain. Clinical correlation and correlation with history is needed. IMPRESSION: 1. No acute bony abnormalities 2. As noted in the separate CT scan of the abdomen and pelvis and CT scan of the lumbar spine, there is extensive abnormal density within the subcutaneous tissues over the dorsal aspect of the lower spine. Again, the exact etiology remains uncertain. Clinical correlation and correlation with patient history is needed.
[2018-04-15] MEDS: Dicyclomine 10 mg Cap PO SCH ×3 (09:36→21:11)
[2018-04-15] MEDS: Ferrous Sulfate 325 MG TAB PO SCH ×2 (09:36→16:08)
[2018-04-15] MEDS: Multivitamin Tab PO SCH (09:37)
[2018-04-15] MEDS: POLYETHYLENE GLYCOL 3350 17 GM PACK PO SCH (09:37)
[2018-04-15] MEDS: Hydrocodone/APAP 10 mg/325 mg Tab PO PRN (21:11)
--- NOTE | 2018-04-15 23:25 | Progress Notes ---
DATE: IDENTIFICATION: An 82-year-old female. SUBJECTIVE: The patient seen and examined. The patient is pleasantly demented, does not provide a meaningful history. The patient's x-ray and scan are unremarkable for any fracture. Lumbar spine and CT scan did not reveal any acute bony abnormality. The patient was noted to have osteoarthritis changes of lumbar. Pelvis CT scan was also performed on 04/14/2018, which was unremarkable for any fracture. The patient has not walked since her fall. The patient has a fair appetite. PHYSICAL EXAMINATION: VITAL SIGNS: Temperature 96.4, pulse 84, respiratory rate 18, and blood pressure 124/58. HEENT: No facial asymmetry. NECK: Supple, no JVD. HEART: Regular. CHEST: Lung equal in expansion, no expiratory wheezing. ABDOMEN: Soft. EXTREMITIES: No edema. AVAILABLE DIAGNOSTIC DATA: Hemoglobin of 8.1 and platelet count of 349. Creatinine is normal. CLINICAL IMPRESSION: 1. Status post mechanical fall with a subcutaneous hematoma. No evidence of any fracture. The patient has most likely bilateral hip sprain. 2. Alzheimer's dementia. 3. Parkinson's. 4. Osteoporosis. 5. Degenerative joint disease. 6. Acute hemorrhagic anemia. No evidence of further bleeding. PLAN: Based on today's evaluation, the patient needs to have physical therapy and occupational therapy. The patient is very unsafe to go to assisted living facility. The patient will require rehabilitation. I will have senior living evaluation and put the patient at [facility]. Case management has been informed. Continue current medication as prescribed. JOB# [id number]
[2018-04-16] MEDS: D5-0.45NS 1,000 ML IV SCH ×2 (01:44→14:35)
[2018-04-16 06:42] LABS: % BASOPHILS 0.6 % (0.0-2.0); % EOSINOPHILS 5.2 % (0.0-5.0); % LYMPHOCYTES 47.5 % (20.0-50.0); % MONOCYTES 10.4 % (2.0-10.0); % NEUTROPHILS 36.3 % (40.0-80.0); BASOPHILE ABSOLUTE 0.1 Th/cumm (0-0.2); EOSINOPHILE ABSOLUTE 0.5 Th/cmm (0.1-0.4); LYMPHOCYTE ABSOLUTE 4.2 Th/cmm (1.5-3.0); MEAN CELL VOLUME 86.4 fl (81-100); MEAN CORPUSCULAR HEMOGLOBIN 28.7 pg (27.0-31.0); MEAN CORPUSCULAR HGB CONC 33.2 pg (28.0-36.0); MEAN PLATELET VOLUME 8.2 fl; MONOCYTE ABSOLUTE 0.9 Th/cmm (0.3-1.0); NEUTROPHILE ABSOLUTE 3.3 Th/cmm (1.8-8.0); PLATELET COUNT 346 Th/cmm (150-400); RED BLOOD COUNT 2.77 Mil/cmm (3.80-5.20); RED CELL DISTRIBUTION WIDTH 13.7 % (11.5-20.0)
[2018-04-16] MEDS: POLYETHYLENE GLYCOL 3350 17 GM PACK PO SCH (08:36)
[2018-04-16] MEDS: Ferrous Sulfate 325 MG TAB PO SCH ×2 (08:36→17:51)
[2018-04-16] MEDS: Dicyclomine 10 mg Cap PO SCH ×3 (08:36→20:20)
[2018-04-16] MEDS: Multivitamin Tab PO SCH (08:36)
[2018-04-17] MEDS: D5-0.45NS 1,000 ML IV SCH (03:48)
--- NOTE | 2018-04-17 06:49 | Progress Notes ---
DATE: 04/16/2018 PATIENT'S ID: An 82-year-old female. SUBJECTIVE: The patient seen and examined. The patient is lying in the bed. According to nursing staff, the patient has spit out some fluid and patient's room has been changed to 14A. The patient does not provide a meaningful history. PHYSICAL EXAMINATION: VITAL SIGNS: Temperature 98.1, pulse 73, respiratory rate 18, blood pressure 130/58. HEENT: No facial asymmetry. NECK: Supple, no JVD. HEART: Regular. CHEST AND LUNGS: Equal in expansion, no expiratory wheezing. ABDOMEN: Soft. No guarding, no rigidity. Bowel sounds present. No palpable mass. EXTREMITIES: No edema. BACK: Hematoma on the parasacral area noted. AVAILABLE DIAGNOSTIC DATA: White count of 9, hemoglobin 8.0, platelet count of 346. CLINICAL IMPRESSION: 1. Status post mechanical fall with hip sprain. 2. Lumbosacral hematoma. 3. Acute hemorrhagic anemia. 4. Psychotic disorder. 5. Dementia. 6. Parkinson's disease. 7. High risk for fall. 8. Debility. PLAN: The patient continued to provide iron therapy along with PT/OT, nutritional support along with psych medication, General nursing care as well. The patient eats fairly well. The patient is stable enough to be discharged to rehab facility for rehabilitation. JOB# [id number]
[2018-04-17] MEDS: POLYETHYLENE GLYCOL 3350 17 GM PACK PO SCH (08:39)
[2018-04-17] MEDS: Dicyclomine 10 mg Cap PO SCH (08:39)
[2018-04-17] MEDS: Multivitamin Tab PO SCH (08:39)
[2018-04-17] MEDS: Ferrous Sulfate 325 MG TAB PO SCH (08:39)
--- NOTE | 2018-04-17 13:54 | Progress Notes ---
DATE: 04/17/2018 PATIENT'S ID: An 82-year-old female. SUBJECTIVE: The patient seen and examined. The patient continued to remain hemodynamically stable. The patient is eating, discussed with nursing staff about the discharge plan. The patient is going to be discharged to lower level of care considering patient is not ambulatory and needs rehabilitation. PHYSICAL EXAMINATION: VITAL SIGNS: Temperature 98, pulse is 64, respiratory rate 18, blood pressure 140/70. HEENT: No facial asymmetry. NECK: Supple, no JVD. HEART: Regular. CHEST AND LUNGS: Equal in expansion, no expiratory wheezing. ABDOMEN: Soft. No guarding, no rigidity. Bowel sounds present. No palpable mass. EXTREMITIES: No edema. CLINICAL IMPRESSION: 1. Status post mechanical fall with hip sprain. 2. Acute hemorrhagic anemia. 3. Lumbosacral hematoma. 4. Psychotic disorder. 5. Parkinson's disease. 6. Dementia. 7. Degenerative joint disease. 8. High risk for fall. PLAN: [facility] The patient will be followed by residential real estate appraiser. At the time of discharge, all of the medications has been reconciled. JOB# [id number]
--- NOTE | 2018-04-17 16:20 | Discharge Summary ---
DATE OF DISCHARGE: 04/17/2018 PRINCIPAL DIAGNOSES: 1. Status post mechanical fall and bilateral hip sprain. 2. Lumbosacral hematoma. 3. Acute hemorrhagic anemia. 4. Alzheimer's type dementia. 5. Parkinson's disease. 6. Degenerative joint disease. 7. High risk for fall. 8. Osteoporosis. 9. Psychotic disorder. BRIEF STATEMENT FOR THE REASON FOR ADMISSION: An 82-year-old female, resident of [facility], presented to Emergency Room after the patient had a mechanical fall. The patient was worked up in the Emergency Room and noted to have a significant amount of hematoma on her lower back area. The patient was unable to move her extremities. The patient was advised to be admitted. Please refer to my dictated H and P for further information. HOSPITAL COURSE: The patient was admitted to Med/Surg floor. The patient had a CT scan of the hip and pelvis as well as lumbar spine, which did not reveal any significant pathology. Orthopedic consultation was requested. Appropriate home medicines were reconciliated. The patient did have followup lab, which was significant drop of the hemoglobin. The patient was noted to have behavior problem with dementia. The patient was placed on all her medication as patient was receiving. The patient was seen by orthopedic surgeon, recommended that the patient does not need any acute intervention. The patient was started on physical therapy and occupational therapy. The patient was noted to have no significant drop of hemoglobin for last 2 days, so the patient was placed on iron therapy as well. The patient is [facility] considering patient cannot go back to assisted living facility where the patient needs more independence and rehab. The patient will be followed by her nuclear medicine tech at [facility]. At the time of discharge, all of her meds are reconciled. JOB# [id number]
== END 2018-04-17 15:30 | DRG 184 ==
LOC: ER 23:38 → TELE 04-13 05:20
PROVIDERS: ADMIT Internal Medicine; ATTEND Internal Medicine
DX: S22.41XA Multiple fractures of ribs, right side, initial encounter for closed fracture (principal); D62 Acute posthemorrhagic anemia; S73.101A Unspecified sprain of right hip, initial encounter; S00.93XA Contusion of unspecified part of head, initial encounter; S73.102A Unspecified sprain of left hip, initial encounter; S70.02XA Contusion of left hip, initial encounter; G20 Parkinson's disease; G30.9 Alzheimer's disease, unspecified; F02.80 Dementia in other diseases classified elsewhere, unspecified severity, without behavioral disturbance, psychotic disturbance, mood disturbance, and anxiety; I25.10 Atherosclerotic heart disease of native coronary artery without angina pectoris; D64.9 Anemia, unspecified; W18.30XA Fall on same level, unspecified, initial encounter; Y93.89 Activity, other specified; Y92.129 Unspecified place in nursing home as the place of occurrence of the external cause; Y99.8 Other external cause status; M81.0 Age-related osteoporosis without current pathological fracture; K59.09 Other constipation; J32.9 Chronic sinusitis, unspecified; K57.30 Diverticulosis of large intestine without perforation or abscess without bleeding; Z91.81 History of falling; Z79.82 Long term (current) use of aspirin
CPT/HCPCS: 36415-UA; 70450-TC; 71045-TC; 71250-TC; 72131-TC; 72192-TC; 73501; 80053-TC; 81001-TC; 82550-TC; 83735-TC; 84443-TC; 84484-TC; 85014-TC; 85018-TC; 85025-TC; 85610-TC; 85730-TC; 87086-90; 90732; 93005; 96374; 96375; 97530; J0696; J1644; J1885; X3904; Z7610

== ENCOUNTER 2018-08-16 14:57 | Emergency (ER) | payer MEDICARE, MEDICAID ==
[2018-08-16 15:23] LABS: % BASOPHILS 0.4 % (0.0-2.0); % EOSINOPHILS 0.6 % (0.0-5.0); % MONOCYTES 4.6 % (2.0-10.0); % NEUTROPHILS 74.4 % (40.0-80.0); EOSINOPHILE ABSOLUTE 0.1 Th/cmm (0.1-0.4); HEMATOCRIT 37.7 % (41.0-60); HEMOGLOBIN 12.6 gm/dL (12-16); LYMPHOCYTE ABSOLUTE 1.9 Th/cmm (1.5-3.0); MEAN CELL VOLUME 89.5 fl (81-100); MEAN CORPUSCULAR HEMOGLOBIN 29.8 pg (27.0-31.0); MEAN CORPUSCULAR HGB CONC 33.3 pg (28.0-36.0); MEAN PLATELET VOLUME 7.4 fl; MONOCYTE ABSOLUTE 0.4 Th/cmm (0.3-1.0); NEUTROPHILE ABSOLUTE 7.2 Th/cmm (1.8-8.0); PLATELET COUNT 359 Th/cmm (150-400); RED BLOOD COUNT 4.22 Mil/cmm (3.80-5.20); RED CELL DISTRIBUTION WIDTH 14.8 % (11.5-20.0); WHITE BLOOD COUNT 9.6 Th/cmm (4.8-10.8)
[2018-08-16 15:37] LABS: INR 0.98 (0.5-1.4); PROTHROMBIN TIME (TEST) 10.2 SECONDS (9.5-11.5)
[2018-08-16 15:42] LABS: ALB/GLOB RATIO 1.2 (1.0-1.8); ALBUMIN 3.5 gm/dL (3.7-5.3); ALKALINE PHOSPHATASE 69 U/L (34-104); ANION GAP 12.1 (7.0-16.0); BILIRUBIN,TOTAL 0.3 mg/dL (0.3-1.0); BUN - UREA NITROGEN 30 mg/dL (7-25); CALCIUM SERUM 9.3 mg/dL (8.6-10.3); CHLORIDE 104 mEq/L (98-107); CREATININE - SERUM 0.7 mg/dL (0.6-1.2); GLUCOSE 126 mg/dL (70-105); POTASSIUM SERUM 4.1 mEq/L (3.5-5.1); SGOT 20 U/L (13-39); SGPT/ALT 3 U/L (7-52); SODIUM SERUM 138 mEq/L (136-145); TOTAL PROTEIN,SERUM 6.5 gm/dL (6.0-8.3)
--- NOTE | 2018-08-16 16:17 | ED Physician Chart ---
ED Chief Complaint/HPI - Patient Information Date Seen:: 08/16/18 Time Seen:: 15:13 Chief Complaint:: back pain History of Present Illness:: this is an 82 yo demented detention patient sent for an evaluation of her back pain. Allergies:: Allergies Allergy/AdvReac Type Severity Reaction Status Date / Time No Known Allergies Allergy Verified 07/14/18 11:48 Vitals:: Vital Signs - 8 hr 08/16/18 15:02 Temp 97.1 F HR 67 RR 19 BP 109/84 O2 Sat % 98 Historian:: EMS, Medical Records Review:: Nurse's Note Reviewed, Old Chart Reviewed, Transfer documents Reviewed ED Review of Systems - Review of Systems General/Constitutional: No fever, No chills, No weight loss, No weakness, No diaphoresis, No edema, No loss of appetite, Other (this patient cannot give a review of systems) Skin: No skin lesions, No rash, No bruising Head: No headache, No light-headedness Eyes: No loss of vision, No pain, No diplopia ENT: No earache, No nasal drainage, No sore throat, No tinnitus Neck: No neck pain, No swelling, No thyromegaly, No stiffness, No mass noted Cardio Vascular: No chest pain, No palpitations, No PND, No orthopnea, No edema Pulmonary: No SOB, No cough, No sputum, No wheezing GI: No nausea, No vomiting, No diarrhea, No pain, No melena, No hematochezia, No constipation, No hematemesis G/U: No dysuria, No frequency, No hematuria Musculoskeletal: No bone or joint pain, No back pain, No muscle pain Endocrine: No polyuria, No polydipsia Psychiatric: No prior psych history, No depression, No anxiety, No suicidal ideation Hematopoietic: No bruising, No lymphadenopathy Allergic/Immuno: No urticaria, No angioedema Neurological: No syncope, No focal symptoms, No weakness, No paresthesia, No headache, No seizure, No dizziness, No confusion, No vertigo ED Past Medical History - Past Medical History Obtainable: Yes Past Medical History: CAD, Dementia, Other (parkinsons) Family History: None Social History: Non Smoker, No Alcohol, No Drug Use, Care Facility Surgical History: None Psychiatricy History: Dementia Medication: Reviewed Family Medical History - Family Member Mother History Unknown: Yes Ethnicity: Non- Living Status: Unknown Hx Family Cancer: (unknown) Hx Family Coronary Artery Disease: (unknown) Hx Family Congestive Heart Failure: (unknown) Hx Family Hypertension: (unknown) Hx Family Stroke: (unknown) Hx Family Diabetes: (unknown) Hx Family Seizures: (unknown) Hx Family Dementia: (unknown) Hx Family AIDS: (unknown) Hx Family COPD: (unknown) Hx Family Hepatitis: (unknown) Hx Family Psychiatric Problems: (unknown) Hx Family Tuberculosis: (unknown) ED Physical Exam - Physical Examination General/Constitutional: Awake, Well-developed, well-nourished, Alert, No distress, GCS 15, Non-toxic appearing, Ambulatory Head: Atraumatic Eyes: Lids, conjuctiva normal, PERRL, EOMI Skin: Nl inspection, No rash, No skin lesions, No ecchymosis, Well hydrated, No lymphadenopathy ENMT: External ears, nose nl, Nasal exam nl, Lips, teeth, gums nl Neck: Nontender, Full ROM w/o pain, No JVD, No nuchal rigidity, No bruit, No mass, No stridor Respiratory: Nl effort/Exclusion, Clear to Auscultation, No Wheeze/Rhonchi/Rales Cardio Vascular: RRR, No murmur, gallop, rubs, NL S1 S2 GI: No tenderness/rebounding/guarding (lower abdominal tenderness), No organomegaly, No hernia, Normal BS's, Nondistended, No mass/bruits, No McBurney tenderness : No CVA tenderness Extremities: No tenderness or effusion, Full ROM, normal strength in all extremities, No edema, Normal digits & nails Neuro/Psych: Alert/oriented, DTR's symmetric, Normal sensory exam, Normal motor strength, Judgement/insight normal, Mood normal, Normal gait, No focal deficits Misc: Normal back, No paraspinal tenderness Other Misc comments:: no tenderness or limited rom of the back. ED Labs/Radiology/EKG Results - Lab Results Results: Laboratory Tests 08/16/18 08/16/18 08/16/18 15:18 15:18 15:18 WBC 9.6 RBC 4.22 Hgb 12.6 Hct 37.7 L MCV 89.5 MCH 29.8 MCHC Differential 33.3 RDW 14.8 Plt Count 359 MPV 7.4 Neutrophils % 74.4 Lymphocytes % 20.0 Monocytes % 4.6 Eosinophils % 0.6 Basophils % 0.4 PT 10.2 INR 0.98 PTT (Actin FS) 21.9 L Sodium 138 Potassium 4.1 Chloride 104 Carbon Dioxide 26.0 Anion Gap 12.1 BUN 30 H Creatinine 0.7 Est GFR ( Amer) TNP Est GFR (Non-Af Amer) TNP BUN/Creatinine Ratio 42.9 Glucose 126 H Calcium 9.3 Total Bilirubin 0.3 AST 20 ALT 3 L Alkaline Phosphatase 69 Troponin I Total Protein 6.5 Albumin 3.5 L Globulin 3.0 Albumin/Globulin Ratio 1.2 08/16/18 15:18 WBC RBC Hgb Hct MCV MCH MCHC Differential RDW Plt Count MPV Neutrophils % Lymphocytes % Monocytes % Eosinophils % Basophils % PT INR PTT (Actin FS) Sodium Potassium Chloride Carbon Dioxide Anion Gap BUN Creatinine Est GFR ( Amer) Est GFR (Non-Af Amer) BUN/Creatinine Ratio Glucose Calcium Total Bilirubin AST ALT Alkaline Phosphatase Troponin I < 0.01 L Total Protein Albumin Globulin Albumin/Globulin Ratio - Radiology Results Results: chest x ray= nad Comments:: ct scan of the abdomen = fecal impaction - EKG Interpretations EKG Time:: 15:09 Rate & Rhythm: rate= 64, sinus [place]: left axis with wide complexes ED Assessment - Assessment General Assessment: back pain ED Septic Shock - . Is Septic Shock (SBP<90, OR Lactate>4 mmol\L) present?: No - <6hrs of presentation: Vital Signs: Vital Signs - 8 hr 08/16/18 15:02 Temp 97.1 F HR 67 RR 19 BP 109/84 O2 Sat % 98 ED Reassessment (Disposition) - Reassessment Reassessment Condition:: Improved - Diagnosis Diagnosis:: constipation - Aftercare/Follow up Instructions Aftercare/Follow-Up Instructions:: Counseled pt regarding lab results/diagnosis & need follow up, Refer to Discharge Instructions, Counseled pt & family regarding lab results/diagnosis & need follow up - Patient Disposition Discharge/Transfer:: Assisted Care - SNF Condition at Disposition:: Improved
[2018-08-16] MEDS ORDERED: Sodium Chloride 0.45% 500 ML IV ONE (16:22)
[2018-08-16] MEDS ORDERED: Fleet Enema 135 mL RC ONE (17:32)
[2018-08-16 17:47] LABS: URINE SOURCE CLEAN C
[2018-08-16 17:52] LABS: URINE BILIRUBIN NEGATIVE (NEGATIVE); URINE BLOOD NEGATIVE (NEGATIVE); URINE GLUCOSE (UA) NEGATIVE (NEGATIVE); URINE KETONE NEGATIVE (NEGATIVE); URINE LEUKOCYTE ESTERASE TRACE (NEGATIVE); URINE MICROSCOPIC INDICATED? YES; URINE NITRATE NEGATIVE (NEGATIVE); URINE PROTEIN NEGATIVE (NEGATIVE); URINE UROBILINOGEN 0.2 E.U./dL (0.2 - 1.0)
[2018-08-16 18:00] LABS: URINE CLARITY CLEAR (CLEAR); URINE COLOR YELLOW
[2018-08-16 18:10] LABS: URINE BACTERIA FEW /hpf (NONE SEEN); URINE EPITHELIAL CELLS FEW /lpf (FEW); URINE FINE GRANULAR CAST 0-2 /lpf (NONE SEEN); URINE RBC 0-2 /hpf (0-5)
--- NOTE | 2018-08-17 09:58 | Diagnostic Imaging Report ---
Exam: Examination of pelvis. HISTORY: Abdominal pain Total DLP equals 532 CTDI equals 11.0 Findings: Multiple contiguous thin section of the chest were obtained from lower thorax to pubic symphysis without the administration of oral or intravenous contrast material, the study was correlated prior exam of 04/13/2018. The study demonstrates normal aeration of lung parenchyma the bases The liver parenchyma is intact. There is evidence for a well defined 3.6 cm cyst in the posterior aspect of right lobe of liver. There is evidence of previous cholecystectomy. The spleen is intact. The pancreas poorly seen. The kidneys demonstrate no evidence of obstructive uropathy or nephrolithiasis. No free fluid is noted. Calcified uterine fibroids appreciated. There is evidence for fecal impaction the rectum. The urinary bladder is intact. Bony structures demonstrate no evidence for lytic or blastic lesions. Degenerative changes lumbar sacral spine appreciated. IMPRESSION: Liver cyst Fecal impaction rectum Calcified uterine fibroid.
--- NOTE | 2018-08-17 10:00 | Diagnostic Imaging Report ---
Chest x-ray single view History: Chest pain Comparison: 07/14/2018 The heart size is normal. No focal pulmonary parenchymal processes. No hilar or mediastinal abnormalities. Impression: No acute abnormalities
--- NOTE | 2018-08-17 10:00 | Diagnostic Imaging Report ---
Exam: Portable examination of Lumbar sacral spine. HISTORY: Pain Findings: Portable examination lumbar sacral spine reviewed at 1529 hours. The study demonstrates degenerative osteoarthritis with narrowing of L4-L5 and L5-S1 intervertebral disc space. Osteophytic spurring appreciated. There is no evidence of spondylolysis or spondylolisthesis. The facet joint arthropathy is noted. There is no evidence of fracture dislocation. No prevertebral soft tissue swelling is noted. IMPRESSION: Osteoarthritis lumbar sacral spine
== END 2018-08-16 18:40 ==
LOC: ER 14:57
DX: K59.00 Constipation, unspecified (principal); I25.10 Atherosclerotic heart disease of native coronary artery without angina pectoris; F03.90 Unspecified dementia, unspecified severity, without behavioral disturbance, psychotic disturbance, mood disturbance, and anxiety
CPT/HCPCS: 36415-UA; 71045-TC; 72110-TC; 80053-TC; 81001-TC; 84443-TC; 84484-TC; 85025-TC; 85610-TC; 85730-TC; 93005